=== PATIENT | male | born 1955 ===

== ENCOUNTER 2016-12-18 09:05 | Inpatient (IN) | payer OTHER ==
[2016-12-18 09:09] VITALS: BMI 29.3
[2016-12-18] MEDS ORDERED: Sodium Chloride 0.9% 1,000 ML IV ONE (09:40)
[2016-12-18] MEDS ORDERED: Iohexol 240 (50 ml) PO STA (09:40)
[2016-12-18] MEDS ORDERED: Iohexol 240 (50 ml) ONE (10:01)
[2016-12-18] MEDS ORDERED: Sodium Chloride 0.9% 1,000 ML ONE ×2 (10:01→21:52)
[2016-12-18 10:41] LABS: BASO % 1.1 % (0.0-2.0); EOS # 0.1 K/uL (0.0-0.7); EOS % 3.4 % (0.0-4.0); HEMATOCRIT 41.4 % (35.0-51.0); LYMPH % 23.6 % (20.0-40.0); MEAN CELL VOLUME 97.5 fL (80.0-94.0); MEAN CORPUSCULAR HEMOGLOBIN 32.7 pg (27.0-31.0); MEAN CORPUSCULAR HGB CONC 33.6 g/dL (33.0-37.0); MEAN PLATELET VOLUME 10.5 fL (7.2-11.7); MONO # 0.5 K/uL (0.0-0.8); NRBC % 0.1 % (0.0-2.0); RED CELL DISTRIBUTION WIDTH 15.3 % (11.5-14.5); WHITE BLOOD COUNT 4.3 K/uL (4.8-10.8)
[2016-12-18 10:56] LABS: CHLORIDE 105 mmol/L (98-107)
[2016-12-18 10:57] LABS: POTASSIUM 3.7 mmol/L (3.6-5.2); SODIUM 138 mmol/L (132-148)
[2016-12-18 10:59] LABS: ALB/GLOB RATIO 0.9 (1.0-2.1); AST/SGOT 188 U/L (17-59); BILIRUBIN,TOTAL 1.5 mg/dL (0.2-1.3); CARBON DIOXIDE 24 mmol/L (22-30); GFR AFRICAN-AMERICAN > 60; TOTAL PROTEIN 6.3 g/dL (6.3-8.3)
[2016-12-18 11:00] LABS: ALKALINE PHOSPHATASE 130 U/L (38-126); ALT/SGPT 116 U/L (21-72); BLOOD UREA NITROGEN 11 mg/dL (9-20); CALCIUM 7.9 mg/dl (8.6-10.4); GLUCOSE,RANDOM 97 mg/dL (75-110)
[2016-12-18 11:42] LABS: RBC URINE < 1 /hpf (0-3); URINE BILIRUBIN NEGATIVE (NEGATIVE); URINE BLOOD NEGATIVE (NEGATIVE); URINE COLOR Yellow (YELLOW); URINE GLUCOSE (UA) NORMAL (Normal); URINE KETONE NEGATIVE (NEGATIVE); URINE LEUKOCYTE ESTERASE TRACE Leu/uL (Negative); URINE PROTEIN NEGATIVE (NEGATIVE); URINE UROBILINOGEN NORMAL mg/dL (0.2-1.0); WBC URINE < 1 /hpf (0-5)
[2016-12-18] MEDS ORDERED: Iodixanol 320 MG/ML 100 ML BOTTLE IV ONE (12:35)
--- NOTE | 2016-12-18 14:00 | CT ---
PROCEDURE: CT Abdomen and Pelvis with contrast HISTORY: abd pain COMPARISON: None. TECHNIQUE: Contrast dose: Visipaque 320, 100 cc Radiation dose: Total exam DLP = 569 mGy-cm. This CT exam was performed using one or more of the following dose reduction techniques: Automated exposure control, adjustment of the mA and/or kV according to patient size, and/or use of iterative reconstruction technique. FINDINGS: LOWER THORAX: Unremarkable. LIVER: There is a borderline enlarged liver without focal mass appreciable. However, the surface of the liver is nodular indicative of cirrhosis. Mild ascites is seen in the abdomen and pelvis in a pattern suspicious for probable hepatofugal blood flow although no definite varices is appreciated in the abdomen at this time. Clinically correlate further. Liver is also diffusely fatty infiltrated. No significant biliary tree dilatation is appreciated. GALLBLADDER AND BILE DUCTS: Imaging the gallbladder reflects distension without radiodense cholelithiasis. No prominent mural thickening is appreciable. PANCREAS: Unremarkable. No gross lesion or ductal dilatation. SPLEEN: Unremarkable. ADRENALS: Unremarkable. No mass. KIDNEYS AND URETERS: Unremarkable. No hydronephrosis. No solid mass. VASCULATURE: Unremarkable. No aortic aneurysm. BOWEL: Retained fecal material limits evaluation of the large bowel with thickening of the distal traverse colon wall questioned. Segmental colitis is not excluded here. Limited sigmoid diverticulosis is appreciated. No definite mural thickening however evaluation is limited due to local ascites. No obstruction. No gross mural thickening. APPENDIX: Appendix is gas filled and therefore likely within normal limits. Its wall is poorly evaluated due to surrounding ascites. The correlate nevertheless prior PERITONEUM: Unremarkable. No free fluid. No free air. LYMPH NODES: Unremarkable. No enlarged lymph nodes. BLADDER: Mildly distended urinary bladder is appreciated. REPRODUCTIVE: Enlarged prostate gland. BONES: No acute fracture. OTHER FINDINGS: None. IMPRESSION: There is borderline hepatomegaly with diffuse fatty infiltration and a cirrhotic liver pattern. Mild abdominal and pelvic ascites may indicate hepatofugal portal venous blood flow. No definite varices development is appreciate this time. Clinically correlate further. Questionable thickening of the mid to distal transverse colon as well as sigmoid diverticulosis. Oral contrast is not reached the segments large bowel at the time of imaging and obscuring by retained fecal material as well as ascites limits evaluation. Segmental colitis is not excluded, particularly at the mid to distal transverse colon more so than the sigmoid segment. The appendix is limited evaluation. Further clinical correlation is advised. Next item Enlarged prostate gland.
--- NOTE | 2016-12-18 14:51 | C.PDOC ---
History Of Present Illness 61 y/o male with pmh of hep c and alcohol abuse presents to ED with complaints of abdominal pain and diarrhea for one month. Patient states he was seen by PMD last week and given antibiotics (cipro /flagyl ) with no relief. Patient denies fever, chills, nausea, vomiting, back pain, blood in stool or any other complaints at this time. Time Seen by Provider: 12/18/16 09:17 Chief Complaint (Nursing): GI Problem History Per: Patient History/Exam Limitations: no limitations Onset/Duration Of Symptoms: Days Current Symptoms Are (Timing): Still Present Location Of Pain/Discomfort: Diffuse Past Medical History Reviewed: Historical Data, Nursing Documentation, Vital Signs Vital Signs: Last Vital Signs Temp 98.4 F 12/21/16 04:00 Pulse 72 12/21/16 04:00 Resp 16 12/21/16 04:00 BP 130/77 12/21/16 04:00 Pulse Ox 100 12/21/16 04:00 - Medical History PMH: Asthma, Gastritis Surgical History: Endoscopy Family History: States: No Known Family Hx - Social History Hx Alcohol Use: No Hx Substance Use: No - Immunization History Hx Tetanus Toxoid Vaccination: No Hx Influenza Vaccination: No Hx Pneumococcal Vaccination: No Review Of Systems Except As Marked, All Systems Reviewed And Found Negative. Constitutional: Negative for: Fever, Chills Gastrointestinal: Positive for: Abdominal Pain, Diarrhea. Negative for: Nausea , Vomiting, Hematochezia Genitourinary: Negative for: Dysuria, Frequency Musculoskeletal: Negative for: Back Pain Skin: Negative for: Rash Physical Exam - Physical Exam Appears: Non-toxic, No Acute Distress Skin: Normal Color, Warm, Dry, No Rash Head: Atraumatic, Normacephalic Eye(s): bilateral: Normal Inspection Oral Mucosa: Moist Neck: Normal ROM, Supple Chest: Symmetrical Cardiovascular: Rhythm Regular, No Murmur Respiratory: Normal Breath Sounds, No Rales, No Rhonchi, Wheezing Gastrointestinal/Abdominal: Soft, No Tenderness, No Guarding, No Rebound Back: No CVA Tenderness, No Paraspinal Tenderness Extremity: Normal ROM, Capillary Refill (<2 seconds) Neurological/Psych: Oriented x3 ED Course And Treatment - Laboratory Results Result Diagrams: 12/21/16 06:16 12/21/16 06:16 O2 Sat by Pulse Oximetry: 99 (RA) Pulse Ox Interpretation: Normal Progress Note: Case discussed with Dr. Winston who states that patient has had these symptoms for over a month, and that patient has his second outpatient treatment. Pt has history of hepatitis C, and notes that his GI specialist is Dr. Conde. Case discussed with Dr. Conde who suggests patient to be admitted and he will further evaluate. Case also discussed with Dr. Bedoya who agrees with plan and admission. Disposition - Disposition Disposition: HOSPITALIZED Disposition Time: 18:20 Condition: STABLE - Clinical Impression Clinical Impression: Abdominal pain, Diarrhea - PA / PRODUCTION EXPERT / Resident Statement MD/DO has reviewed & agrees with the documentation as recorded. - Scribe Statement The provider has reviewed the documentation as recorded by the Ebonie Steve All medical record entries made by the Ebonie were at my direction and personally dictated by me. I have reviewed the chart and agree that the record accurately reflects my personal performance of the history, physical exam, medical decision making, and the department course for this patient. I have also personally directed, reviewed, and agree with the discharge instructions and disposition.
--- NOTE | 2016-12-18 20:43 | CP.PCM.HP ---
<Juan Alberto Ocampo - Last Filed: 12/18/16 20:36> History of Present Illness - History of Present Illness History of Present Illness: PMD: Dr. Epps Code status: Full code PGY1 Note for Dr. Bedoya HPI: Patient is a 61 year old Albanian speaking male presenting the ED with constant diarrhea. The diarrhea began 1 month ago. He went to his PMD(Dr. Anglin) two weeks ago who started him on Flagel 500mg BID and Cipro 500mg BID for suspected bacterial infection. The abx have not help and the diarrhea has continued. This morning, the patient woke up feeling weak and the said that is enough we are going to the ER. He denies any blood in the stool. He states that it is watery diarrhea and has gone so many times he lost count. The episodes are made worse with every meal. Although the patient is hungry he is unable to retain foods as it immediately causes an episode of diarrhea. During each episode of diarrhea he has diffuse abdominal pain, but it stops after defecation. ROS * General: Reports weight loss of the last month, and weakness. Denies fever, chills, diaphoresis, and changes in appetite, recent travel, recent illness, recent sick contacts. * HEENT: Denies changes in vision. * Cardio: Denies CP, Palp. * Resp: Denies SOB * GI: Reports diarrhea, abdominal pain. Denies hematochezia * : Denies dysuria, freq. * MSK: Denies muscle pain. * Heme: Denies easy bruising * Neuro: Reports weakness. Denies dizziness. 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 Medications * Diphenoxylate 1tb q4h * Cipro 500mg BID * Metro 500mg q8h * Meclizine 25mg as needed Allergies: Penicillin, swells up Present on Admission - Present on Admission Any Indicators Present on Admission: No History of DVT/PE: No History of Uncontrolled Diabetes: No Urinary Catheter: No Decubitus Ulcer Present: No History Surgical Site Infection Following: None Review of Systems - Constitutional Constitutional: As Per HPI - EENT Eyes: As Per HPI Ears: As Per HPI Nose/Mouth/Throat: As Per HPI - Cardiovascular Cardiovascular: As Per HPI - Respiratory Respiratory: As Per HPI - Gastrointestinal Gastrointestinal: As Per HPI - Genitourinary Genitourinary: As Per HPI - Reproductive: Male Reproductive:Male: As Per HPI - Musculoskeletal Musculoskeletal: As Per HPI - Integumentary Integumentary: As Per HPI - Neurological Neurological: As Per HPI - Psychiatric Psychiatric: As Per HPI - Endocrine Endocrine: As Per HPI - Hematologic/Lymphatic Hematologic: As Per HPI Past Patient History - Past Medical History & Family History Past Medical History?: Yes - Past Social History Smoking Status: Never Smoked - CARDIAC Hx Cardiac Disorders: No - PULMONARY Hx Asthma: Yes - NEUROLOGICAL Hx Neurological Disorder: Yes Hx Dizziness: Yes - HEENT Hx HEENT Problems: Yes Hx Cataracts: Yes Hx Glaucoma: Yes - RENAL Hx Chronic Kidney Disease: No - ENDOCRINE/METABOLIC Hx Endocrine Disorders: No - HEMATOLOGICAL/ONCOLOGICAL Hx Blood Disorders: Yes Hx Hepatitis C: Yes - INTEGUMENTARY Hx Dermatological Problems: No - MUSCULOSKELETAL/RHEUMATOLOGICAL Hx Musculoskeletal Disorders: No - GASTROINTESTINAL Hx Gastritis: Yes - GENITOURINARY/GYNECOLOGICAL Hx Genitourinary Disorders: No - PSYCHIATRIC Hx Substance Use: No - SURGICAL HISTORY Hx Surgeries: Yes Hx Cataract Extraction: Yes Hx Eye Surgery: Yes (GLAUCOMA SX) - ANESTHESIA Hx Anesthesia: Yes Hx Anesthesia Reactions: No Hx Malignant Hyperthermia: No Meds Allergies/Adverse Reactions: Allergies Allergy/AdvReac Type Severity Reaction Status Date / Time Penicillins Allergy RASH Verified 12/18/16 09:29 Physical Exam - Constitutional Appears: Well, Non-toxic, No Acute Distress - Head Exam Head Exam: ATRAUMATIC, NORMAL INSPECTION, NORMOCEPHALIC - Eye Exam Eye Exam: EOMI Pupil Exam: NORMAL ACCOMODATION - ENT Exam ENT Exam: Mucous Membranes Moist - Neck Exam Neck exam: Positive for: Normal Inspection - Respiratory Exam Respiratory Exam: Clear to Auscultation Bilateral, NORMAL BREATHING PATTERN - Cardiovascular Exam Cardiovascular Exam: REGULAR RHYTHM - GI/Abdominal Exam GI & Abdominal Exam: Normal Bowel Sounds, Soft. absent: Distended, Tenderness - Back Exam Back exam: absent: CVA tenderness (L), CVA tenderness (R) - Neurological Exam Neurological exam: Alert, Oriented x3 - Psychiatric Exam Psychiatric exam: Normal Affect, Normal Mood - Skin Skin Exam: Dry, Intact, Normal Color, Warm Results - Vital Signs Recent Vital Signs: Last Vital Signs Temp 97.8 F 12/18/16 17:26 Pulse 67 12/18/16 19:15 Resp 18 12/18/16 19:15 BP 124/59 L 12/18/16 19:15 Pulse Ox 96 12/18/16 19:15 - Labs Result Diagrams: 12/18/16 10:36 12/18/16 10:36 Labs: Laboratory Results - last 24 hr 12/18/16 12/18/16 17:19 17:19 Stool Leukocytes, Qual Negative C. difficile Ag & Toxin Negative Assessment & Plan - Assessment and Plan (Free Text) Assessment: Diverticulitis * GI ([facility]) * Recovering * CT does not show any overt signs of inflammation (stranding or wall thickening ), numerous tics through majority of colon * Cipro IV 400mg Q12 * Flagyl IV 500mg Q8 * Full Liquid Diet Diarrhea * Stool C. diff negative * Stool WBC negative * Stool Occult blood * Stool O/P * H. pylori Ag * NS @ 175 Hx of Vertigo * Meclezine 25mg PRN PPX * Pepcid 20mg QD * SCDs * Ambulate - Date & Time Date: 12/18/16 Time: 20:53 Decision To Admit - Pt Status Changed To: Hospital Disposition Of: Observation - . Bed Request Type: Regular <Bedoya,Peter H - Last Filed: 12/19/16 09:34> Results - Vital Signs Recent Vital Signs: Last Vital Signs Temp 97.6 F 12/19/16 08:20 Pulse 68 12/19/16 07:33 Resp 18 12/19/16 07:33 BP 138/84 12/19/16 07:33 Pulse Ox 99 12/19/16 07:33 - Labs Result Diagrams: 12/19/16 06:26 12/19/16 06:26 Labs: Laboratory Results - last 24 hr 12/18/16 12/18/16 12/18/16 10:36 10:36 11:17 WBC 4.3 L RBC 4.25 L Hgb 13.9 Hct 41.4 MCV 97.5 H MCH 32.7 H MCHC 33.6 RDW 15.3 H Plt Count 104 L MPV 10.5 Neut % (Auto) 59.9 Lymph % (Auto) 23.6 Fa[place]ner % (Auto) 12.0 H Eos % (Auto) 3.4 Baso % (Auto) 1.1 Neut # 2.6 Lymph # 1.0 Fa[place]ner # 0.5 Eos # 0.1 Baso # 0.0 Differential Comment Sodium 138 Potassium 3.7 Chloride 105 Carbon Dioxide 24 Anion Gap 12 BUN 11 Creatinine 0.6 L Est GFR ( Amer) > 60 Est GFR (Non-Af Amer) > 60 Random Glucose 97 Calcium 7.9 L Total Bilirubin 1.5 H AST 188 H ALT 116 H Alkaline Phosphatase 130 H Total Protein 6.3 Albumin 3.0 L Globulin 3.3 Albumin/Globulin Ratio 0.9 L Lipase 126 Urine Color Yellow Urine Clarity Clear Urine pH 5.0 Ur Specific [place] 1.014 Urine Protein Negative Urine Glucose (UA) Normal Urine Ketones Negative Urine Blood Negative Urine Nitrate Negative Urine Bilirubin Negative Urine Urobilinogen Normal Ur Leukocyte Esterase Trace Urine WBC (Auto) < 1 Urine RBC (Auto) < 1 Stool Leukocytes, Qual C. difficile Ag & Toxin 12/18/16 12/18/16 12/19/16 17:19 17:19 06:26 WBC 4.7 L RBC 3.93 L Hgb 13.1 Hct 37.8 MCV 96.3 H MCH 33.3 H MCHC 34.6 RDW 15.1 H Plt Count 91 L MPV 9.7 Neut % (Auto) 47.0 L Lymph % (Auto) 31.9 [place]ner % (Auto) 10.5 H Eos % (Auto) 9.6 H Baso % (Auto) 1.0 Neut # 2.2 Lymph # 1.5 Fa[place]ner # 0.5 Eos # 0.5 Baso # 0.0 Differential Comment Sodium Potassium Chloride Carbon Dioxide Anion Gap BUN Creatinine Est GFR ( Amer) Est GFR (Non-Af Amer) Random Glucose Calcium Total Bilirubin AST ALT Alkaline Phosphatase Total Protein Albumin Globulin Albumin/Globulin Ratio Lipase Urine Color Urine Clarity Urine pH Ur Specific [place] Urine Protein Urine Glucose (UA) Urine Ketones Urine Blood Urine Nitrate Urine Bilirubin Urine Urobilinogen Ur Leukocyte Esterase Urine WBC (Auto) Urine RBC (Auto) Stool Leukocytes, Qual Negative C. difficile Ag & Toxin Negative 12/19/16 06:26 WBC RBC Hgb Hct MCV MCH MCHC RDW Plt Count MPV Neut % (Auto) Lymph % (Auto) Fa[place]ner % (Auto) Eos % (Auto) Baso % (Auto) Neut # Lymph # [place]ner # Eos # Baso # Differential Comment Sodium 135 Potassium 4.0 Chloride 104 Carbon Dioxide 25 Anion Gap 10 BUN 11 Creatinine 0.6 L Est GFR ( Amer) > 60 Est GFR (Non-Af Amer) > 60 Random Glucose 78 Calcium 8.0 L Total Bilirubin AST ALT Alkaline Phosphatase Total Protein Albumin Globulin Albumin/Globulin Ratio Lipase Urine Color Urine Clarity Urine pH Ur Specific [place] Urine Protein Urine Glucose (UA) Urine Ketones Urine Blood Urine Nitrate Urine Bilirubin Urine Urobilinogen Ur Leukocyte Esterase Urine WBC (Auto) Urine RBC (Auto) Stool Leukocytes, Qual C. difficile Ag & Toxin Attending/Attestation - Attestation I have personally seen and examined this patient.: Yes I have fully participated in the care of the patient.: Yes I have reviewed all pertinent clinical information: Yes Notes (Text): 12/19/16 09:31 Medical attending: Patient was seen and examined by me, agrees the above note by medical office worker. The patient was with family member at bedside when we saw him. He is not under any acute distress when we saw him. He appeared rather comfortable. Reviewed his lab work shows that he does not have a white blood cell count, and his hemoglobin is stable. We had discussion with regards to the patient's ongoing diarrhea that has been going on for some time. He's also been getting some outpatient antibiotics as well. In the emergency room he had a CT scan of the abdomen and pelvis which did not show any overt findings for diverticulitis per say but there are several things that it explained that it had difficulty ruling out At this time were to check stool studies, the patient will need to have intravenous fluids will continue IV antibiotics at this time. The patient also had a stool for C. difficile that was negative Thank you very much, Hardeep Bedoya
[2016-12-18] MEDS ORDERED: Ciprofloxacin 400mg/200ml D5W 400 MG/200 ML BAG IVPB ONE (21:52)
[2016-12-18] MEDS: Ciprofloxacin 400mg/200ml D5W 400 MG/200 ML BAG IVPB SCH (22:00)
[2016-12-18] MEDS: Sodium Chloride 0.9% 1,000 ML IV SCH (22:52)
[2016-12-18] MEDS: metroNIDAZOLE IV 500 mg/100 ml 500 MG/100 ML BAG IVPB SCH (23:45)
[2016-12-18] MEDS ORDERED: metroNIDAZOLE IV 500 mg/100 ml 500 MG/100 ML BAG ONE (23:46)
[2016-12-19] MEDS: Sodium Chloride 0.9% 1,000 ML IV SCH ×4 (03:00→16:15)
[2016-12-19] MEDS ORDERED: metroNIDAZOLE IV 500 mg/100 ml 500 MG/100 ML BAG ONE (06:29)
[2016-12-19] MEDS: metroNIDAZOLE IV 500 mg/100 ml 500 MG/100 ML BAG IVPB SCH ×3 (06:30→22:00)
[2016-12-19 06:32] LABS: EOS # 0.5 K/uL (0.0-0.7); EOS % 9.6 % (0.0-4.0); HEMATOCRIT 37.8 % (35.0-51.0); LYMPH # 1.5 K/uL (1.0-4.3); LYMPH % 31.9 % (20.0-40.0); MEAN CELL VOLUME 96.3 fL (80.0-94.0); MEAN CORPUSCULAR HEMOGLOBIN 33.3 pg (27.0-31.0); MEAN CORPUSCULAR HGB CONC 34.6 g/dL (33.0-37.0); MEAN PLATELET VOLUME 9.7 fL (7.2-11.7); MONO # 0.5 K/uL (0.0-0.8); MONO % 10.5 % (0.0-10.0); NRBC % 0.1 % (0.0-2.0); RED CELL DISTRIBUTION WIDTH 15.1 % (11.5-14.5); WHITE BLOOD COUNT 4.7 K/uL (4.8-10.8)
[2016-12-19 06:52] LABS: CHLORIDE 104 mmol/L (98-107); SODIUM 135 mmol/L (132-148)
[2016-12-19 06:55] LABS: BLOOD UREA NITROGEN 11 mg/dL (9-20); CARBON DIOXIDE 25 mmol/L (22-30); GFR AFRICAN-AMERICAN > 60
[2016-12-19 06:56] LABS: GLUCOSE,RANDOM 78 mg/dL (75-110)
--- NOTE | 2016-12-19 07:20 | CP.PCM.PN ---
<Juan Alberto Ocampo - Last Filed: 12/19/16 19:39> Subjective - Date & Time of Evaluation Date of Evaluation: 12/19/16 Time of Evaluation: 07:19 - Subjective Subjective: PGY1 Note for Dr. Bedoya HPI: Patient seen and examined at bedside. Stating he is having less diarrhea. No abdominal pain. Tolerating diet. No other complaoints at this time. Denying chest pain, SOB, F, N/V. Objective - Vital Signs/Intake and Output Vital Signs (last 24 hours): Temp Pulse Resp BP Pulse Ox 97.9 F 65 17 134/75 98 12/19/16 06:33 12/19/16 06:33 12/19/16 06:33 12/19/16 06:33 12/19/16 06:33 - Medications Medications: Current Medications Acetaminophen (Tylenol 325mg Tab) 650 mg PO Q6 PRN PRN Reason: Fever >100.4 F Famotidine (Pepcid) 20 mg PO DAILY [facility] Ciprofloxacin (Cipro 400mg/200ml Dsw) 400 mg in 200 mls @ 133 mls/hr IVPB Q12H [facility] Last Admin: 12/18/16 22:00 Dose: 133 mls/hr Metronidazole (Flagyl) 500 mg in 100 mls @ 100 mls/hr IVPB Q8 [facility] Last Admin: 12/19/16 06:30 Dose: 100 mls/hr Sodium Chloride (Sodium Chloride 0.9%) 1,000 mls @ 175 mls/hr IV .[id number] [facility] Last Admin: 12/19/16 03:00 Dose: 175 mls/hr Meclizine HCl (Antivert) 25 mg PO BID PRN PRN Reason: Dizziness Ondansetron HCl (Zofran Inj) 4 mg IVP Q6 PRN PRN Reason: Nausea/Vomiting - Labs Labs: 12/19/16 06:26 12/19/16 06:26 - Constitutional Appears: Well, Non-toxic, No Acute Distress - Head Exam Head Exam: ATRAUMATIC, NORMAL INSPECTION, NORMOCEPHALIC - Eye Exam Eye Exam: EOMI Pupil Exam: NORMAL ACCOMODATION - ENT Exam ENT Exam: Mucous Membranes Moist - Respiratory Exam Respiratory Exam: Clear to Ausculation Bilateral, NORMAL BREATHING PATTERN - Cardiovascular Exam Cardiovascular Exam: REGULAR RHYTHM - GI/Abdominal Exam GI & Abdominal Exam: Soft, Hyperactive Bowel Sounds. absent: Distended, Tenderness - Extremities Exam Extremities Exam: absent: Joint Swelling, Tenderness - Back Exam Back Exam: absent: CVA tenderness (L), CVA tenderness (R) - Neurological Exam Neurological Exam: Alert, Awake, Oriented x3 - Psychiatric Exam Psychiatric exam: Normal Affect, Normal Mood - Skin Skin Exam: Dry, Intact, Normal Color, Warm Assessment and Plan - Assessment and Plan (Free Text) Assessment: Diverticulitis * GI ([facility]ton) * Aztreonam due to failed cipro outpatient and PCN allergy * EGD screening for varices * Continue IVF * autoimmune hepatits - Normal IgG * hepatitis panel = HCV +, HBV negative * AFP - F/U * Iron profile = Iron 195, TIBC 252, % Sat 77 * Thrombocytopenia likely secondary to Liver Dz * Recovering * CT does not show any overt signs of inflammation (stranding or wall thickening ), numerous tics through majority of colon * Aztreonam 2g IV Q8 * Flagyl IV 500mg Q8 * Full Liquid Diet Diarrhea * Stool C. diff negative * Stool WBC negative * Stool Occult blood * negative * Stool O/P * H. pylori Ag * NS @ 75 Hx of Vertigo * Meclezine 25mg PRN PPX * Pepcid 20mg QD * SCDs * Ambulate <Hardeep Bedoya H - Last Filed: 12/20/16 07:41> Objective - Vital Signs/Intake and Output Vital Signs (last 24 hours): Temp Pulse Resp BP Pulse Ox 98.1 F 72 16 132/78 100 12/20/16 04:00 12/20/16 04:00 12/20/16 04:00 12/20/16 04:00 12/20/16 04:00 Intake and Output: 12/20/16 12/20/16 06:59 18:59 Intake Total 400 Balance 400 - Medications Medications: Current Medications Acetaminophen (Tylenol 325mg Tab) 650 mg PO Q6 PRN PRN Reason: Fever >100.4 F Famotidine (Pepcid) 20 mg PO DAILY [facility] Last Admin: 12/19/16 10:38 Dose: 20 mg Metronidazole (Flagyl) 500 mg in 100 mls @ 100 mls/hr IVPB Q8 [facility] Last Admin: 12/20/16 05:06 Dose: 100 mls/hr Aztreonam 2 gm/ Sodium (Chloride) 100 mls @ 100 mls/hr IVPB Q8H [facility] Last Admin: 12/20/16 04:00 Dose: 100 mls/hr Sodium Chloride (Sodium Chloride 0.9%) 1,000 mls @ 75 mls/hr IV .[id number] [facility] Last Admin: 12/20/16 05:02 Dose: 75 mls/hr Meclizine HCl (Antivert) 25 mg PO BID PRN PRN Reason: Dizziness Ondansetron HCl (Zofran Inj) 4 mg IVP Q6 PRN PRN Reason: Nausea/Vomiting - Labs Labs: 12/20/16 06:12 12/20/16 06:12 PT 17.5 SECONDS (9.7-12.2) H 12/19/16 11:26 INR 1.5 12/19/16 11:26 Attending/Attestation - Attestation I have personally seen and examined this patient.: Yes I have fully participated in the care of the patient.: Yes I have reviewed all pertinent clinical information, including history, physical exam and plan: Yes Notes (Text): 12/20/16 07:38 Medical Attending: Patient was seen and examined by me. Agree with the above note by the resident. The patient was seen with family members present at bedside. He reported that his pain was much improved since before. Somewhat less diarrhea as well. The patient denied fevers and chills as well. The patient may potentially have endoscopy Abx were changed to be Aztreonam and Flagyl. thank you Hardeep Bedoya
[2016-12-19] MEDS: Ciprofloxacin 400mg/200ml D5W 400 MG/200 ML BAG IVPB SCH (10:31)
--- NOTE | 2016-12-19 11:35 | CP.PCM.CON ---
<Celine Mcintosh - Last Filed: 12/19/16 11:54> History of Present Illness - History of Present Illness History of Present Illness: GI Fellow PGY4 Consult Note This is a 61yM with a pmhx of HepC, heavy alcohol use 30yrs ago, vertigo presenting to the ED with complaints of watery diarrhea for one month. The pt went to his PMD(Dr. Anglin) two weeks ago and was started on Flagyl and Cipro for suspected bacterial infection. Pt reports he completed a 10day course on Sunday which helped decreased the diarrhea from 15 times a day to 7-8 times a day. Pt denies abdominal pain, nausea, vomiting, fevers, chills, melena, or hematochezia. The episodes are made worse with every meal. Prior to this episode , pt reports having regular BM daily with no history of constipation or diarrhea. Pt report she was diagnosed with Hepc 3oyrs ago and never was treated also has a hx of heavy drinking which he stopped 30yrs ago. Pt did have a colonoscopy 05/[address] 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 ROS: A 12pt ROS was obtained and was negative except as above PmHx: As stated in HPI SHx: denies tobacco, alcohol or illicit drug use FHx: Denies colon cancer PsHx: Denies Past Patient History - Past Medical History & Family History Past Medical History?: Yes - Past Social History Smoking Status: Former Smoker - CARDIAC Hx Cardiac Disorders: No - PULMONARY Hx Asthma: Yes - NEUROLOGICAL Hx Neurological Disorder: Yes Hx Dizziness: Yes - HEENT Hx HEENT Problems: Yes Hx Cataracts: Yes Hx Glaucoma: Yes - RENAL Hx Chronic Kidney Disease: No - ENDOCRINE/METABOLIC Hx Endocrine Disorders: No - HEMATOLOGICAL/ONCOLOGICAL Hx Blood Disorders: Yes Hx Hepatitis C: Yes - INTEGUMENTARY Hx Dermatological Problems: No - MUSCULOSKELETAL/RHEUMATOLOGICAL Hx Falls: No - GASTROINTESTINAL Hx Gastritis: Yes - GENITOURINARY/GYNECOLOGICAL Hx Genitourinary Disorders: No - PSYCHIATRIC Hx Substance Use: No - SURGICAL HISTORY Hx Surgeries: Yes Hx Cataract Extraction: Yes Hx Eye Surgery: Yes (GLAUCOMA SX) - ANESTHESIA Hx Anesthesia: Yes Hx Anesthesia Reactions: No Hx Malignant Hyperthermia: No Meds Allergies/Adverse Reactions: Allergies Allergy/AdvReac Type Severity Reaction Status Date / Time Penicillins Allergy RASH Verified 12/18/16 09:29 - Medications Medications: Current Medications Acetaminophen (Tylenol 325mg Tab) 650 mg PO Q6 PRN PRN Reason: Fever >100.4 F Famotidine (Pepcid) 20 mg PO DAILY [facility] Last Admin: 12/19/16 10:38 Dose: 20 mg Metronidazole (Flagyl) 500 mg in 100 mls @ 100 mls/hr IVPB Q8 [facility] Last Admin: 12/19/16 06:30 Dose: 100 mls/hr Sodium Chloride (Sodium Chloride 0.9%) 1,000 mls @ 175 mls/hr IV .[id number] [facility] Last Admin: 12/19/16 08:45 Dose: 175 mls/hr Aztreonam 2 gm/ Sodium (Chloride) 100 mls @ 200 mls/hr IVPB Q8H [facility] Meclizine HCl (Antivert) 25 mg PO BID PRN PRN Reason: Dizziness Ondansetron HCl (Zofran Inj) 4 mg IVP Q6 PRN PRN Reason: Nausea/Vomiting Physical Exam - Constitutional Appears: Non-toxic, No Acute Distress - Head Exam Head Exam: ATRAUMATIC, NORMAL INSPECTION, NORMOCEPHALIC - Eye Exam Eye Exam: EOMI, Normal appearance, PERRL - ENT Exam ENT Exam: Mucous Membranes Moist - Neck Exam Neck exam: Positive for: Normal Inspection - Respiratory Exam Respiratory Exam: Clear to Auscultation Bilateral, NORMAL BREATHING PATTERN - Cardiovascular Exam Cardiovascular Exam: RRR, +S1, +S2 - GI/Abdominal Exam GI & Abdominal Exam: Hyperactive Bowel Sounds, Soft. absent: Distended, Firm, Guarding, Rigid, Tenderness - Extremities Exam Extremities exam: Positive for: full ROM, normal inspection - Back Exam Back exam: NORMAL INSPECTION - Neurological Exam Neurological exam: Alert, Oriented x3 - Psychiatric Exam Psychiatric exam: Normal Affect, Normal Mood - Skin Skin Exam: Dry, Intact, Normal Color, Warm Results - Vital Signs Recent Vital Signs: Last Vital Signs Temp 97.6 F 12/19/16 08:20 Pulse 68 12/19/16 07:33 Resp 18 12/19/16 07:33 BP 138/84 12/19/16 07:33 Pulse Ox 99 12/19/16 07:33 - Labs Result Diagrams: 12/19/16 06:26 12/19/16 06:26 Labs: Laboratory Results - last 24 hr 12/18/16 12/18/16 12/18/16 11:17 17:19 17:19 WBC RBC Hgb Hct MCV MCH MCHC RDW Plt Count MPV Neut % (Auto) Lymph % (Auto) [place] % (Auto) Eos % (Auto) Baso % (Auto) Neut # Lymph # [place] # Eos # Baso # Sodium Potassium Chloride Carbon Dioxide Anion Gap BUN Creatinine Est GFR ( Amer) Est GFR (Non-Af Amer) Random Glucose Calcium Urine Color Yellow Urine Clarity Clear Urine pH 5.0 Ur Specific [place] 1.014 Urine Protein Negative Urine Glucose (UA) Normal Urine Ketones Negative Urine Blood Negative Urine Nitrate Negative Urine Bilirubin Negative Urine Urobilinogen Normal Ur Leukocyte Esterase Trace Urine WBC (Auto) < 1 Urine RBC (Auto) < 1 Stool Leukocytes, Qual Negative C. difficile Ag & Toxin Negative 12/19/16 12/19/16 06:26 06:26 WBC 4.7 L RBC 3.93 L Hgb 13.1 Hct 37.8 MCV 96.3 H MCH 33.3 H MCHC 34.6 RDW 15.1 H Plt Count 91 L MPV 9.7 Neut % (Auto) 47.0 L Lymph % (Auto) 31.9 [place] % (Auto) 10.5 H Eos % (Auto) 9.6 H Baso % (Auto) 1.0 Neut # 2.2 Lymph # 1.5 [place] # 0.5 Eos # 0.5 Baso # 0.0 Sodium 135 Potassium 4.0 Chloride 104 Carbon Dioxide 25 Anion Gap 10 BUN 11 Creatinine 0.6 L Est GFR ( Amer) > 60 Est GFR (Non-Af Amer) > 60 Random Glucose 78 Calcium 8.0 L Urine Color Urine Clarity Urine pH Ur Specific [place] Urine Protein Urine Glucose (UA) Urine Ketones Urine Blood Urine Nitrate Urine Bilirubin Urine Urobilinogen Ur Leukocyte Esterase Urine WBC (Auto) Urine RBC (Auto) Stool Leukocytes, Qual C. difficile Ag & Toxin Assessment & Plan - Assessment and Plan (Free Text) Assessment: This is a 61yM presenting with watery diarrhea for one month. 1. Diarrhea 2. Cirrhosis 3. Transaminitis 4. Thrombocytopenia 5. Hx Hep C Plan: -Continue supportive care with IVF hydration and clear liquid diet -Order infectious workup with stool studies, pt's c.diff was negative -Discontinue IV Cipro as pt failed outpt treatment and high fluoroquinolone resistance, will start IV Aztreonam since pt has penicillin allergy, continue Metronidazole -Further workup of pt's cirrhosis -autoimmune, hepatitis panel, AFP, iron profile -Pt may benefit from screening variceal EGD -Thrombocytopenia likely due to liver disease -Will continue to follow pt closely and make further recommendations <Lonnie Conde - Last Filed: 12/19/16 14:57> Meds - Medications Medications: Current Medications Acetaminophen (Tylenol 325mg Tab) 650 mg PO Q6 PRN PRN Reason: Fever >100.4 F Famotidine (Pepcid) 20 mg PO DAILY [facility] Last Admin: 12/19/16 10:38 Dose: 20 mg Metronidazole (Flagyl) 500 mg in 100 mls @ 100 mls/hr IVPB Q8 [facility] Last Admin: 12/19/16 06:30 Dose: 100 mls/hr Sodium Chloride (Sodium Chloride 0.9%) 1,000 mls @ 175 mls/hr IV .[id number] [facility] Last Admin: 12/19/16 14:14 Dose: Not Given Aztreonam 2 gm/ Sodium (Chloride) 100 mls @ 100 mls/hr IVPB Q8H [facility] Last Admin: 12/19/16 13:26 Dose: 100 mls/hr Meclizine HCl (Antivert) 25 mg PO BID PRN PRN Reason: Dizziness Ondansetron HCl (Zofran Inj) 4 mg IVP Q6 PRN PRN Reason: Nausea/Vomiting Results - Vital Signs Recent Vital Signs: Last Vital Signs Temp 97.5 F L 12/19/16 12:01 Pulse 68 12/19/16 07:33 Resp 18 12/19/16 07:33 BP 138/84 12/19/16 07:33 Pulse Ox 99 12/19/16 07:33 - Labs Result Diagrams: 12/19/16 06:26 12/19/16 06:26 Labs: Laboratory Results - last 24 hr 12/18/16 12/18/16 12/19/16 17:19 17:19 06:26 WBC 4.7 L RBC 3.93 L Hgb 13.1 Hct 37.8 MCV 96.3 H MCH 33.3 H MCHC 34.6 RDW 15.1 H Plt Count 91 L MPV 9.7 Neut % (Auto) 47.0 L Lymph % (Auto) 31.9 [place] % (Auto) 10.5 H Eos % (Auto) 9.6 H Baso % (Auto) 1.0 Neut # 2.2 Lymph # 1.5 [place] # 0.5 Eos # 0.5 Baso # 0.0 PT INR Sodium Potassium Chloride Carbon Dioxide Anion Gap BUN Creatinine Est GFR ( Amer) Est GFR (Non-Af Amer) Random Glucose Calcium Total Bilirubin Direct Bilirubin AST ALT Alkaline Phosphatase Total Protein Albumin Globulin Albumin/Globulin Ratio Stool Leukocytes, Qual Negative IgG C. difficile Ag & Toxin Negative Hepatitis A IgM Ab Hep Bs Antigen Hep B Core IgM Ab Hepatitis C Antibody 12/19/16 12/19/16 12/19/16 06:26 11:26 11:26 WBC RBC Hgb Hct MCV MCH MCHC RDW Plt Count MPV Neut % (Auto) Lymph % (Auto) [place] % (Auto) Eos % (Auto) Baso % (Auto) Neut # Lymph # [place] # Eos # Baso # PT 17.5 H INR 1.5 Sodium 135 Potassium 4.0 Chloride 104 Carbon Dioxide 25 Anion Gap 10 BUN 11 Creatinine 0.6 L Est GFR ( Amer) > 60 Est GFR (Non-Af Amer) > 60 Random Glucose 78 Calcium 8.0 L Total Bilirubin 1.4 H Direct Bilirubin 0.8 H AST 173 H ALT 97 H Alkaline Phosphatase 111 Total Protein 5.5 L Albumin 2.6 L Globulin 3.0 Albumin/Globulin Ratio 0.9 L Stool Leukocytes, Qual IgG C. difficile Ag & Toxin Hepatitis A IgM Ab Hep Bs Antigen Hep B Core IgM Ab Hepatitis C Antibody 12/19/16 12/19/16 11:44 11:47 WBC RBC Hgb Hct MCV MCH MCHC RDW Plt Count MPV Neut % (Auto) Lymph % (Auto) [place] % (Auto) Eos % (Auto) Baso % (Auto) Neut # Lymph # [place] # Eos # Baso # PT INR Sodium Potassium Chloride Carbon Dioxide Anion Gap BUN Creatinine Est GFR ( Amer) Est GFR (Non-Af Amer) Random Glucose Calcium Total Bilirubin Direct Bilirubin AST ALT Alkaline Phosphatase Total Protein Albumin Globulin Albumin/Globulin Ratio Stool Leukocytes, Qual IgG 1367.2 C. difficile Ag & Toxin Hepatitis A IgM Ab Negative Hep Bs Antigen Negative Hep B Core IgM Ab Negative Hepatitis C Antibody Reactive Attending/Attestation - Attestation I have personally seen and examined this patient.: Yes I have fully participated in the care of the patient.: Yes I have reviewed all pertinent clinical information: Yes Notes (Text): 12/19/16 14:50 I have seen and examined patient with GI fellow. Agree with above documentation with the following additions. In brief, this is a 61 year old male with history of HCV, compensated cirrhosis, who presents to hospital with complaint of progressive diarrhea over the past one month. He describes having up to 7 loose watery, non bloody bowel movements per day which started suddenly. Prior to this he was having once daily normal bowel movements. He was worked up as outpatient and started on antibiotic therapy, though after 10 days his symptoms persisted and he came to hospital for further management. He denies abdominal pain, nausea, vomiting, fever/chills, weight loss, rectal bleeding, recent travel, sick contacts, or prior antibiotic use. He is treatment naive for HCV, though was undergoing potential evaluation for therapy as outpatient. He had a colonoscopy in May 2016 which showed a cecal AVM, diverticulosis, and internal hemorrhoids. Additional physical examination: Abdomen: no palpable hepato/splenomegaly HCV, compensated cirrhosis Diarrhea - unclear etiology, non-responsive to outpatient oral antibiotic therapy - Clear liquid diet as tolerated - Obtain stool studies (culture, c-difficile, O/P) - Would change antibiotic regimen in order to account for potential quinolone resistance, aztreonam and flagyl - Continue to monitor LFTs, obtain autoimmune panel - Patient had outpatient triple phase liver CT in July 2016 which showed no focal liver lesion. He would benefit from EGD for variceal screening, potentially will be scheduled on pending patient clinical progress.
[2016-12-19 11:45] LABS: INR 1.5
[2016-12-19 11:54] LABS: ALB/GLOB RATIO 0.9 (1.0-2.1); BILIRUBIN,DIRECT 0.8 mg/dL (0.0-0.4); BILIRUBIN,TOTAL 1.4 mg/dL (0.2-1.3); TOTAL PROTEIN 5.5 g/dL (6.3-8.3)
[2016-12-19] MEDS: Aztreonam 2 GM in Sodium Chloride 0.9% 100 ML IVPB SCH ×2 (13:26→20:00)
[2016-12-19 16:26] LABS: IRON 195 ug/dL (49-181)
[2016-12-20] MEDS: Aztreonam 2 GM in Sodium Chloride 0.9% 100 ML IVPB SCH ×3 (04:00→20:00)
[2016-12-20] MEDS: Sodium Chloride 0.9% 1,000 ML IV SCH ×2 (05:02→18:49)
[2016-12-20] MEDS: metroNIDAZOLE IV 500 mg/100 ml 500 MG/100 ML BAG IVPB SCH ×3 (05:06→22:00)
[2016-12-20 06:25] LABS: BASO % 1.1 % (0.0-2.0); EOS # 0.3 K/uL (0.0-0.7); EOS % 6.3 % (0.0-4.0); LYMPH # 1.4 K/uL (1.0-4.3); LYMPH % 30.2 % (20.0-40.0); MEAN CELL VOLUME 97.3 fL (80.0-94.0); MEAN CORPUSCULAR HEMOGLOBIN 33.2 pg (27.0-31.0); MEAN CORPUSCULAR HGB CONC 34.1 g/dL (33.0-37.0); MEAN PLATELET VOLUME 9.5 fL (7.2-11.7); MONO # 0.4 K/uL (0.0-0.8); MONO % 9.7 % (0.0-10.0); NRBC % 0.2 % (0.0-2.0); RED CELL DISTRIBUTION WIDTH 15.1 % (11.5-14.5); WHITE BLOOD COUNT 4.5 K/uL (4.8-10.8)
[2016-12-20 06:31] LABS: CHLORIDE 106 mmol/L (98-107); SODIUM 138 mmol/L (132-148)
[2016-12-20 06:32] LABS: POTASSIUM 4.6 mmol/L (3.6-5.2)
[2016-12-20 06:34] LABS: GFR AFRICAN-AMERICAN > 60
[2016-12-20 06:35] LABS: BLOOD UREA NITROGEN 11 mg/dL (9-20); CARBON DIOXIDE 23 mmol/L (22-30); GLUCOSE,RANDOM 81 mg/dL (75-110)
--- NOTE | 2016-12-20 11:47 | CP.PCM.PN ---
<Celine Mcintosh - Last Filed: 12/20/16 12:47> Subjective - Date & Time of Evaluation Date of Evaluation: 12/20/16 Time of Evaluation: 11:15 - Subjective Subjective: GI Fellow PGY4 Progress Note Pt seen and evaluated at beside, pt reports doing better this am. Pt denies any further diarrhea just passing gas, denies abdominal pain, fevers or chills. Discussed with pt about filling out insurance forms to get approved for Harvoni treatment for HepC. Also plan for EGD tomorrow. ROS: A 12pt ROS was obtained and was negative except as above. Objective - Vital Signs/Intake and Output Vital Signs (last 24 hours): Temp Pulse Resp BP Pulse Ox 97.4 F L 72 16 132/78 100 12/20/16 08:00 12/20/16 04:00 12/20/16 04:00 12/20/16 04:00 12/20/16 04:00 Intake and Output: 12/20/16 12/20/16 06:59 18:59 Intake Total 400 600 Balance 400 600 - Medications Medications: Current Medications Acetaminophen (Tylenol 325mg Tab) 650 mg PO Q6 PRN PRN Reason: Fever >100.4 F Famotidine (Pepcid) 20 mg PO DAILY [facility] Last Admin: 12/20/16 10:36 Dose: 20 mg Heparin Sodium (Porcine) (Heparin) 5,000 units SC Q12 [facility] Last Admin: 12/20/16 10:36 Dose: 5,000 units Metronidazole (Flagyl) 500 mg in 100 mls @ 100 mls/hr IVPB Q8 [facility] Last Admin: 12/20/16 05:06 Dose: 100 mls/hr Aztreonam 2 gm/ Sodium (Chloride) 100 mls @ 100 mls/hr IVPB Q8H [facility] Last Admin: 12/20/16 04:00 Dose: 100 mls/hr Sodium Chloride (Sodium Chloride 0.9%) 1,000 mls @ 75 mls/hr IV .[id number] [facility] Last Admin: 12/20/16 05:02 Dose: 75 mls/hr Meclizine HCl (Antivert) 25 mg PO BID PRN PRN Reason: Dizziness Ondansetron HCl (Zofran Inj) 4 mg IVP Q6 PRN PRN Reason: Nausea/Vomiting - Labs Labs: 12/20/16 06:12 12/20/16 06:12 PT 17.5 SECONDS (9.7-12.2) H 12/19/16 11:26 INR 1.5 12/19/16 11:26 - Constitutional Appears: Well, Non-toxic, No Acute Distress - Head Exam Head Exam: ATRAUMATIC, NORMAL INSPECTION, NORMOCEPHALIC - Eye Exam Eye Exam: EOMI, Normal appearance Pupil Exam: NORMAL ACCOMODATION, PERRL - ENT Exam ENT Exam: Mucous Membranes Moist, Normal Exam - Neck Exam Neck Exam: Full ROM, Normal Inspection - Respiratory Exam Respiratory Exam: Clear to Ausculation Bilateral, NORMAL BREATHING PATTERN - Cardiovascular Exam Cardiovascular Exam: REGULAR RHYTHM, +S1, +S2 - GI/Abdominal Exam GI & Abdominal Exam: Soft, Normal Bowel Sounds. absent: Distended, Tenderness, Organomegaly - Rectal Exam Rectal Exam: Deferred - Extremities Exam Extremities Exam: Full ROM, Normal Inspection. absent: Pedal Edema - Back Exam Back Exam: NORMAL INSPECTION - Neurological Exam Neurological Exam: Alert, Awake, Oriented x3 - Psychiatric Exam Psychiatric exam: Normal Affect, Normal Mood - Skin Skin Exam: Dry, Intact, Normal Color, Pallor, Warm Assessment and Plan - Assessment and Plan (Free Text) Assessment: This is a 61yM with pmhx of HCV, vertigo who presents to hospital with complaint of watery diarrhea for the past one month. He describes having up to 7 -10 loose watery, non bloody bowel movements everyday with prior normal bowel habits. He was treated outpatient with po abx cipro/flagyl but his symptoms persisted. He is treatment naive for HCV, and has been worked up for therapy as outpatient with . He had a colonoscopy in May 2016 which showed a cecal AVM, diverticulosis, and internal hemorrhoids. 1. Diarrhea 2. Cirrhosis 3. Transaminitis 4. Thrombocytopenia 5. Hep C Plan: -Continue supportive care, pt clinically improving with no further diarrhea -Will advance to regular diet today and NPO after midnight for EGD -Stool studies negative for ova/parasites/c.diff -Continue IV Aztreonam since pt has penicillin allergy, continue Metronidazole -Thrombocytopenia likely due to liver disease -Pt has an extensive workup as an outpt for HepC/cirrhosis: viral load>2million , Genotype 1a, F4, AFP49, CT Liver negative for lesions, plan to treat with Hannah after insurance approval as outpt -Plan for EGD tomorrow for variceal screening, consent signed and in chart -Will continue to follow pt closely and make further recommendations <Ron Valencia - Last Filed: 12/20/16 13:00> Objective - Vital Signs/Intake and Output Vital Signs (last 24 hours): Temp Pulse Resp BP Pulse Ox 97.4 F L 72 16 132/78 100 12/20/16 08:00 12/20/16 04:00 12/20/16 04:00 12/20/16 04:00 12/20/16 04:00 Intake and Output: 12/20/16 12/20/16 06:59 18:59 Intake Total 400 600 Balance 400 600 - Medications Medications: Current Medications Acetaminophen (Tylenol 325mg Tab) 650 mg PO Q6 PRN PRN Reason: Fever >100.4 F Carvedilol (Coreg) 3.125 mg PO BID [facility] Famotidine (Pepcid) 20 mg PO DAILY [facility] Last Admin: 12/20/16 10:36 Dose: 20 mg Heparin Sodium (Porcine) (Heparin) 5,000 units SC Q12 [facility] Last Admin: 12/20/16 10:36 Dose: 5,000 units Metronidazole (Flagyl) 500 mg in 100 mls @ 100 mls/hr IVPB Q8 [facility] Last Admin: 12/20/16 05:06 Dose: 100 mls/hr Aztreonam 2 gm/ Sodium (Chloride) 100 mls @ 100 mls/hr IVPB Q8H [facility] Last Admin: 12/20/16 04:00 Dose: 100 mls/hr Sodium Chloride (Sodium Chloride 0.9%) 1,000 mls @ 75 mls/hr IV .[id number] [facility] Last Admin: 12/20/16 05:02 Dose: 75 mls/hr Meclizine HCl (Antivert) 25 mg PO BID PRN PRN Reason: Dizziness Ondansetron HCl (Zofran Inj) 4 mg IVP Q6 PRN PRN Reason: Nausea/Vomiting - Labs Labs: 12/20/16 06:12 12/20/16 06:12 PT 17.5 SECONDS (9.7-12.2) H 12/19/16 11:26 INR 1.5 12/19/16 11:26 Attending/Attestation - Attestation I have personally seen and examined this patient.: Yes I have fully participated in the care of the patient.: Yes I have reviewed all pertinent clinical information, including history, physical exam and plan: Yes Notes (Text): 12/20/16 12:59 61 year old male with h/o HCV Cirrhosis a/w diarrhea. 1. Diarrhea 2. Cirrhosis 3. Hepatitis C Plan: -diarrhea improved / resolved -tolerating diet -recommend EGD tomorrow for variceal assessment -outpatient treatment for hep c recommended
--- NOTE | 2016-12-20 20:30 | CP.PCM.PN ---
<Juan Alberto Ocampo - Last Filed: 12/20/16 20:25> Subjective - Date & Time of Evaluation Date of Evaluation: 12/20/16 Time of Evaluation: 20:25 - Subjective Subjective: PGY1 Note for Dr. Bedoya HPI: Patient seen and examined at bedside. Doing well with no complaints at this time. Had some diarrhea this morning but much less than before. Stating he is having some solid stool now. No belly pain. Able to tolerate diet. Objective - Vital Signs/Intake and Output Vital Signs (last 24 hours): Temp Pulse Resp BP Pulse Ox 98.2 F 72 16 132/78 100 12/20/16 14:00 12/20/16 04:00 12/20/16 04:00 12/20/16 04:00 12/20/16 04:00 Intake and Output: 12/20/16 12/21/16 18:59 06:59 Intake Total 1700 Balance 1700 - Medications Medications: Current Medications Acetaminophen (Tylenol 325mg Tab) 650 mg PO Q6 PRN PRN Reason: Fever >100.4 F Carvedilol (Coreg) 3.125 mg PO BID [facility] Last Admin: 12/20/16 18:48 Dose: 3.125 mg Famotidine (Pepcid) 20 mg PO DAILY [facility] Last Admin: 12/20/16 10:36 Dose: 20 mg Heparin Sodium (Porcine) (Heparin) 5,000 units SC Q12 [facility] Last Admin: 12/20/16 10:36 Dose: 5,000 units Metronidazole (Flagyl) 500 mg in 100 mls @ 100 mls/hr IVPB Q8 [facility] Last Admin: 12/20/16 13:25 Dose: 100 mls/hr Aztreonam 2 gm/ Sodium (Chloride) 100 mls @ 100 mls/hr IVPB Q8H [facility] Last Admin: 12/20/16 12:00 Dose: 100 mls/hr Sodium Chloride (Sodium Chloride 0.9%) 1,000 mls @ 75 mls/hr IV .[id number] [facility] Last Admin: 12/20/16 18:49 Dose: 75 mls/hr Meclizine HCl (Antivert) 25 mg PO BID PRN PRN Reason: Dizziness Last Admin: 12/20/16 13:24 Dose: 25 mg Ondansetron HCl (Zofran Inj) 4 mg IVP Q6 PRN PRN Reason: Nausea/Vomiting - Labs Labs: 12/20/16 06:12 12/20/16 06:12 PT 17.5 SECONDS (9.7-12.2) H 12/19/16 11:26 INR 1.5 12/19/16 11:26 - Constitutional Appears: Well, Non-toxic, No Acute Distress - Head Exam Head Exam: ATRAUMATIC, NORMAL INSPECTION, NORMOCEPHALIC - Eye Exam Eye Exam: EOMI - ENT Exam ENT Exam: Mucous Membranes Moist - Neck Exam Neck Exam: Full ROM - Respiratory Exam Respiratory Exam: Clear to Ausculation Bilateral, NORMAL BREATHING PATTERN - Cardiovascular Exam Cardiovascular Exam: REGULAR RHYTHM - GI/Abdominal Exam GI & Abdominal Exam: Soft, Normal Bowel Sounds. absent: Distended, Tenderness - Extremities Exam Extremities Exam: absent: Joint Swelling, Tenderness - Back Exam Back Exam: absent: CVA tenderness (L), CVA tenderness (R) - Neurological Exam Neurological Exam: Alert, Awake, Oriented x3 - Psychiatric Exam Psychiatric exam: Normal Affect, Normal Mood - Skin Skin Exam: Dry, Intact, Normal Color, Warm Assessment and Plan - Assessment and Plan (Free Text) Assessment: Diverticulitis * GI ([place]) * Aztreonam due to failed cipro outpatient and PCN allergy * EGD screening for varices tomorrow * Continue IVF * Iron profile = Iron 195, TIBC 252, % Sat 77 * Thrombocytopenia likely secondary to Liver Dz * Pt has an extensive workup as an outpt for HepC/cirrhosis: viral load> 2million, Genotype 1a, F4, AFP49, CT Liver negative for lesions, plan to treat with Harvoni after insurance approval as outpt * Recovering * CT does not show any overt signs of inflammation (stranding or wall thickening ), numerous tics through majority of colon * Aztreonam 2g IV Q8 * Flagyl IV 500mg Q8 * Regular Diet Diarrhea * Stool C. diff negative * Stool WBC negative * Stool Occult blood * negative * Stool O/P - negative * H. pylori Ag Hx of Vertigo * Meclezine 25mg PRN PPX * Pepcid 20mg QD * SCDs * Ambulate <Hardeep Bedoya H - Last Filed: 12/21/16 07:14> Objective - Vital Signs/Intake and Output Vital Signs (last 24 hours): Temp Pulse Resp BP Pulse Ox 98.4 F 72 16 130/77 100 12/21/16 04:00 12/21/16 04:00 12/21/16 04:00 12/21/16 04:00 12/21/16 04:00 Intake and Output: 12/21/16 12/21/16 06:59 18:59 Intake Total 1900 Balance 1900 - Medications Medications: Current Medications Acetaminophen (Tylenol 325mg Tab) 650 mg PO Q6 PRN PRN Reason: Fever >100.4 F Carvedilol (Coreg) 3.125 mg PO BID [facility] Last Admin: 12/20/16 18:48 Dose: 3.125 mg Famotidine (Pepcid) 20 mg PO DAILY [facility] Last Admin: 12/20/16 10:36 Dose: 20 mg Heparin Sodium (Porcine) (Heparin) 5,000 units SC Q12 [facility] Last Admin: 12/20/16 22:00 Dose: 5,000 units Metronidazole (Flagyl) 500 mg in 100 mls @ 100 mls/hr IVPB Q8 [facility] Last Admin: 12/21/16 05:30 Dose: 100 mls/hr Aztreonam 2 gm/ Sodium (Chloride) 100 mls @ 100 mls/hr IVPB Q8H [facility] Last Admin: 12/21/16 04:00 Dose: 100 mls/hr Meclizine HCl (Antivert) 25 mg PO BID PRN PRN Reason: Dizziness Last Admin: 12/20/16 13:24 Dose: 25 mg Ondansetron HCl (Zofran Inj) 4 mg IVP Q6 PRN PRN Reason: Nausea/Vomiting - Labs Labs: 12/21/16 06:16 12/21/16 06:16 PT 17.5 SECONDS (9.7-12.2) H 12/19/16 11:26 INR 1.5 12/19/16 11:26 Attending/Attestation - Attestation I have personally seen and examined this patient.: Yes I have fully participated in the care of the patient.: Yes I have reviewed all pertinent clinical information, including history, physical exam and plan: Yes Notes (Text): Medical Attending: Patient was seen and examined by me. Agree with the above note by the resident. The patient appeared very well when we saw him. He was not in any acute distress. Also abdominal pain was minimal. Diarrhea was also reported as minimal as well. When seen in the morning the patient was tolerating food very well. GI is planning on possible endoscopy At this time the patient is on IV abx Aztreonam and Roxana Bedoya
[2016-12-21] MEDS: Aztreonam 2 GM in Sodium Chloride 0.9% 100 ML IVPB SCH ×3 (04:00→20:00)
[2016-12-21] MEDS: metroNIDAZOLE IV 500 mg/100 ml 500 MG/100 ML BAG IVPB SCH ×3 (05:30→21:47)
[2016-12-21 06:22] LABS: BASO # 0.1 K/uL (0.0-0.2); EOS # 0.5 K/uL (0.0-0.7); EOS % 9.1 % (0.0-4.0); HEMATOCRIT 38.7 % (35.0-51.0); LYMPH # 1.9 K/uL (1.0-4.3); LYMPH % 37.4 % (20.0-40.0); MEAN CELL VOLUME 96.2 fL (80.0-94.0); MEAN CORPUSCULAR HEMOGLOBIN 32.7 pg (27.0-31.0); MEAN PLATELET VOLUME 9.4 fL (7.2-11.7); MONO # 0.5 K/uL (0.0-0.8); MONO % 9.2 % (0.0-10.0); NRBC % 0.2 % (0.0-2.0); RED CELL DISTRIBUTION WIDTH 15.3 % (11.5-14.5); WHITE BLOOD COUNT 5.1 K/uL (4.8-10.8)
[2016-12-21 06:38] LABS: CHLORIDE 106 mmol/L (98-107); POTASSIUM 4.4 mmol/L (3.6-5.2); SODIUM 139 mmol/L (132-148)
[2016-12-21 06:40] LABS: GFR AFRICAN-AMERICAN > 60
[2016-12-21 06:41] LABS: BLOOD UREA NITROGEN 13 mg/dL (9-20); CALCIUM 7.7 mg/dl (8.6-10.4); CARBON DIOXIDE 25 mmol/L (22-30); GLUCOSE,RANDOM 78 mg/dL (75-110)
[2016-12-21] MEDS ORDERED: Propofol 10 mg/ml Inj (20 ML) ONE ×2 (09:44)
[2016-12-21] MEDS ORDERED: Lactated Ringer's 1,000 ML IV ONE (09:44)
[2016-12-21] MEDS ORDERED: Lactated Ringer's 500 ML IV SCH (10:00)
--- NOTE | 2016-12-21 14:55 | CP.PCM.PN ---
<Juan Alberto Ocampo - Last Filed: 12/21/16 14:49> Subjective - Date & Time of Evaluation Date of Evaluation: 12/21/16 Time of Evaluation: 14:49 - Subjective Subjective: PGY1 Note for Dr. Bedoya Patient seen and examined today. Doing well with no complaints at this time. No diarrhea, tolerating diet. Had EGD tpday which he tolerated well. If he does well today and tomorrow can go home tomorrow. Objective - Vital Signs/Intake and Output Vital Signs (last 24 hours): Temp Pulse Resp BP Pulse Ox 97.3 F L 60 10 L 131/79 100 12/21/16 10:45 12/21/16 10:45 12/21/16 10:45 12/21/16 10:45 12/21/16 10:45 Intake and Output: 12/21/16 12/21/16 06:59 18:59 Intake Total 1900 Output Total 350 Balance 1900 -350 - Medications Medications: Current Medications Acetaminophen (Tylenol 325mg Tab) 650 mg PO Q6 PRN PRN Reason: Fever >100.4 F Carvedilol (Coreg) 3.125 mg PO BID [facility] Last Admin: 12/21/16 11:47 Dose: Not Given Heparin Sodium (Porcine) (Heparin) 5,000 units SC Q12 [facility] Last Admin: 12/21/16 11:46 Dose: 5,000 units Metronidazole (Flagyl) 500 mg in 100 mls @ 100 mls/hr IVPB Q8 [facility] Last Admin: 12/21/16 14:24 Dose: 100 mls/hr Aztreonam 2 gm/ Sodium (Chloride) 100 mls @ 100 mls/hr IVPB Q8H [facility] Last Admin: 12/21/16 11:52 Dose: 100 mls/hr Meclizine HCl (Antivert) 25 mg PO BID PRN PRN Reason: Dizziness Last Admin: 12/20/16 13:24 Dose: 25 mg Ondansetron HCl (Zofran Inj) 4 mg IVP Q6 PRN PRN Reason: Nausea/Vomiting Pantoprazole Sodium (Protonix Ec Tab) 40 mg PO ACB [facility] - Labs Labs: 12/21/16 06:16 12/21/16 06:16 PT 17.5 SECONDS (9.7-12.2) H 12/19/16 11:26 INR 1.5 12/19/16 11:26 - Constitutional Appears: Well, Non-toxic, No Acute Distress - Head Exam Head Exam: ATRAUMATIC, NORMAL INSPECTION, NORMOCEPHALIC - ENT Exam ENT Exam: Mucous Membranes Moist - Respiratory Exam Respiratory Exam: Clear to Ausculation Bilateral, NORMAL BREATHING PATTERN - Cardiovascular Exam Cardiovascular Exam: REGULAR RHYTHM - GI/Abdominal Exam GI & Abdominal Exam: Soft, Normal Bowel Sounds. absent: Distended, Tenderness - Extremities Exam Extremities Exam: absent: Joint Swelling, Tenderness - Neurological Exam Neurological Exam: Alert, Awake, Oriented x3 - Psychiatric Exam Psychiatric exam: Normal Affect, Normal Mood - Skin Skin Exam: Dry, Intact, Normal Color, Warm Assessment and Plan - Assessment and Plan (Free Text) Assessment: Diverticulitis * GI ([facility]) * Aztreonam due to failed cipro outpatient and PCN allergy * EGD today showed portal hypertensive gastropathy, esophageal varices, gastritis with erosions. [address] on esophageal varices * Continue IVF * Iron profile = Iron 195, TIBC 252, % Sat 77 * Thrombocytopenia likely secondary to Liver Dz * Pt has an extensive workup as an outpt for HepC/cirrhosis: viral load> 2million, Genotype 1a, F4, AFP49, CT Liver negative for lesions, plan to treat with Harvoni after insurance approval as outpt * Recovering * CT does not show any overt signs of inflammation (stranding or wall thickening ), numerous tics through majority of colon * Aztreonam 2g IV Q8 * Flagyl IV 500mg Q8 * CLD Diarrhea * Stool C. diff negative * Stool WBC negative * Stool Occult blood * negative * Stool O/P - negative * H. pylori Ag Hx of Vertigo * Meclezine 25mg PRN PPX * Pepcid 20mg QD * SCDs * Ambulate Dispo: Can be D/c tomorrow if diet is tolerated <Hardeep Bedoya - Last Filed: 12/21/16 15:41> Objective - Vital Signs/Intake and Output Vital Signs (last 24 hours): Temp Pulse Resp BP Pulse Ox 97.3 F L 60 10 L 131/79 100 12/21/16 10:45 12/21/16 10:45 12/21/16 10:45 12/21/16 10:45 12/21/16 10:45 Intake and Output: 09/21/17 09/21/17 06:59 18:59 Intake Total 1900 Output Total 350 Balance 1900 -350 - Medications Medications: Current Medications Acetaminophen (Tylenol 325mg Tab) 650 mg PO Q6 PRN PRN Reason: Fever >100.4 F Carvedilol (Coreg) 3.125 mg PO BID [facility] Last Admin: 12/21/16 11:47 Dose: Not Given Heparin Sodium (Porcine) (Heparin) 5,000 units SC Q12 [facility] Last Admin: 12/21/16 11:46 Dose: 5,000 units Metronidazole (Flagyl) 500 mg in 100 mls @ 100 mls/hr IVPB Q8 [facility] Last Admin: 12/21/16 14:24 Dose: 100 mls/hr Aztreonam 2 gm/ Sodium (Chloride) 100 mls @ 100 mls/hr IVPB Q8H [facility] Last Admin: 12/21/16 11:52 Dose: 100 mls/hr Meclizine HCl (Antivert) 25 mg PO BID PRN PRN Reason: Dizziness Last Admin: 12/20/16 13:24 Dose: 25 mg Ondansetron HCl (Zofran Inj) 4 mg IVP Q6 PRN PRN Reason: Nausea/Vomiting Pantoprazole Sodium (Protonix Ec Tab) 40 mg PO ACB [facility] - Labs Labs: 12/21/16 06:16 12/21/16 06:16 PT 17.5 SECONDS (9.7-12.2) H 12/19/16 11:26 INR 1.5 12/19/16 11:26 Attending/Attestation - Attestation I have personally seen and examined this patient.: Yes I have fully participated in the care of the patient.: Yes I have reviewed all pertinent clinical information, including history, physical exam and plan: Yes Notes (Text): Medical attending: Patient was seen and examined by me, agrees the above note by medical dosimetrist. Family members were present in the room as well, the patient was okay with this. Early in the morning the patient had EGD, he had 2 bands placed as well as observation that he has a lot of gastritis We had discussion about this with the patient. Per my discussion with GI the patient can go home tomorrow if he does well with the diet he's on. Thank you very much, Hardeep Bedoya
[2016-12-21 20:21] VITALS: RESP 20; O2SAT 96
[2016-12-22] MEDS: Aztreonam 2 GM in Sodium Chloride 0.9% 100 ML IVPB SCH ×2 (04:30→11:15)
[2016-12-22] MEDS: metroNIDAZOLE IV 500 mg/100 ml 500 MG/100 ML BAG IVPB SCH ×2 (06:08→13:22)
--- NOTE | 2016-12-22 06:54 | CP.PCM.PN ---
<Thaddeus Elaine - Last Filed: 12/22/16 07:32> Subjective - Date & Time of Evaluation Date of Evaluation: 12/22/16 Time of Evaluation: 06:30 - Subjective Subjective: PGY5 GI Fellow Progress Note Patient seen and examined bedside this morning. The patient states that since we last saw the patient, he has had 7 episode of loose watery stool. Denies any abdominal pain but has some very mild discomfort in his chest following esophageal variceal banding. Tolerated liquid diet without issue. Denies any melena, hematochezia. 12 system ROS performed and negative except where stated. Objective - Vital Signs/Intake and Output Vital Signs (last 24 hours): Temp Pulse Resp BP Pulse Ox 98.3 F 65 20 129/77 96 12/21/16 15:00 12/21/16 15:00 12/21/16 15:00 12/21/16 15:00 12/21/16 15:00 Intake and Output: 12/21/16 12/22/16 18:59 06:59 Intake Total 300 Output Total 350 Balance -350 300 - Medications Medications: Current Medications Acetaminophen (Tylenol 325mg Tab) 650 mg PO Q6 PRN PRN Reason: Fever >100.4 F Carvedilol (Coreg) 3.125 mg PO BID [facility] Last Admin: 12/21/16 18:05 Dose: 3.125 mg Heparin Sodium (Porcine) (Heparin) 5,000 units SC Q12 [facility] Last Admin: 12/21/16 21:48 Dose: 5,000 units Metronidazole (Flagyl) 500 mg in 100 mls @ 100 mls/hr IVPB Q8 [facility] Last Admin: 12/22/16 06:08 Dose: 100 mls/hr Aztreonam 2 gm/ Sodium (Chloride) 100 mls @ 100 mls/hr IVPB Q8H [facility] Last Admin: 12/22/16 04:30 Dose: 100 mls/hr Meclizine HCl (Antivert) 25 mg PO BID PRN PRN Reason: Dizziness Last Admin: 12/20/16 13:24 Dose: 25 mg Ondansetron HCl (Zofran Inj) 4 mg IVP Q6 PRN PRN Reason: Nausea/Vomiting Pantoprazole Sodium (Protonix Ec Tab) 40 mg PO ACB [facility] - Labs Labs: 12/21/16 06:16 12/21/16 06:16 PT 17.5 SECONDS (9.7-12.2) H 12/19/16 11:26 INR 1.5 12/19/16 11:26 - Constitutional Appears: Non-toxic, No Acute Distress - Eye Exam Eye Exam: EOMI, PERRL - ENT Exam ENT Exam: Mucous Membranes Moist - Respiratory Exam Respiratory Exam: Clear to Ausculation Bilateral. absent: Rales, Rhonchi, Wheezes - Cardiovascular Exam Cardiovascular Exam: RRR, +S1, +S2 - GI/Abdominal Exam GI & Abdominal Exam: Soft, Normal Bowel Sounds. absent: Distended, Firm, Guarding, Rigid, Tenderness, Organomegaly - Extremities Exam Extremities Exam: Normal Inspection. 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), prior EtOH abuse (now sober) who presented with chronic loose, watery diarrhea (~4 weeks) -Chronic diarrhea -Cirrhosis with esophageal varices s/p esophageal variceal band ligation -HCV, treatment naive - GT1a Plan: -Still having 7+ episodes of loose watery stool at present -O&P, stool cx and c diff all negative -S/P esophageal variceal band ligation -Awaiting stool electrolytes to calculate stool gap -Avoid lactose, sucralose in diet -Would D/C antibiotic therapy in the absence of obvious infectious causes -Start metamucil PO TID -Consider Lomotil/Immodium; could also consider trial of Xifaxin for IBS-D symptoms if needed -Will benefit from outpatient evaluation for liver transplant at [facility] -Outpatient evaluation/treatment of HCV - will likely need NS5a resistance testing *MELD-Na: 16 <Ron Valencia - Last Filed: 12/22/16 07:40> Objective - Vital Signs/Intake and Output Vital Signs (last 24 hours): Temp Pulse Resp BP Pulse Ox 98.3 F 65 20 129/77 96 12/21/16 15:00 12/21/16 15:00 12/21/16 15:00 12/21/16 15:00 12/21/16 15:00 Intake and Output: 12/22/16 12/22/16 06:59 18:59 Intake Total 300 Balance 300 - Medications Medications: Current Medications Acetaminophen (Tylenol 325mg Tab) 650 mg PO Q6 PRN PRN Reason: Fever >100.4 F Carvedilol (Coreg) 3.125 mg PO BID [facility] Last Admin: 12/21/16 18:05 Dose: 3.125 mg Heparin Sodium (Porcine) (Heparin) 5,000 units SC Q12 [facility] Last Admin: 12/21/16 21:48 Dose: 5,000 units Metronidazole (Flagyl) 500 mg in 100 mls @ 100 mls/hr IVPB Q8 [facility] Last Admin: 12/22/16 06:08 Dose: 100 mls/hr Aztreonam 2 gm/ Sodium (Chloride) 100 mls @ 100 mls/hr IVPB Q8H [facility] Last Admin: 12/22/16 04:30 Dose: 100 mls/hr Meclizine HCl (Antivert) 25 mg PO BID PRN PRN Reason: Dizziness Last Admin: 12/20/16 13:24 Dose: 25 mg Ondansetron HCl (Zofran Inj) 4 mg IVP Q6 PRN PRN Reason: Nausea/Vomiting Pantoprazole Sodium (Protonix Ec Tab) 40 mg PO ACB [facility] Psyllium Hydrophilic Mucilloid (Hydrocil Instant) 1 pkt PO TID [facility] - Labs Labs: 12/21/16 06:16 12/21/16 06:16 PT 17.5 SECONDS (9.7-12.2) H 12/19/16 11:26 INR 1.5 12/19/16 11:26 Attending/Attestation - Attestation I have personally seen and examined this patient.: Yes I have fully participated in the care of the patient.: Yes I have reviewed all pertinent clinical information, including history, physical exam and plan: Yes Notes (Text): 12/22/16 07:37 61 year old male with h/o HCV Cirrhosis a/w diarrhea, now s/p EGD with banding of varices. 1. Esophageal varices 2. Cirrhosis 3. Hepatitis C 4. Altered bowel habits Plan: -s/p EGD with banding x 2 -follow up [facility] outpatient -advance diet as tolerated -no strong indication for antibiotics at this point -stool studies all negative -patient reports small soft (non-liquid) Bm several times a day, sometimes with urgency, no bleeding or fever, normal wbc -recommend trial of fiber supplement -consider daily probiotic -ok for discharge -outpatient treatment for hep c recommended
[2016-12-22] MEDS ORDERED: Pantoprazole 40 mg EC Tab PO SCH (07:30)
[2016-12-22 08:45] VITALS: BP 125/69; PULSE 70; TEMP 98.6
[2016-12-22 08:56] LABS: BASO % 0.9 % (0.0-2.0); EOS # 0.2 K/uL (0.0-0.7); EOS % 5.7 % (0.0-4.0); HEMATOCRIT 41.9 % (35.0-51.0); LYMPH # 1.5 K/uL (1.0-4.3); LYMPH % 34.3 % (20.0-40.0); MEAN CELL VOLUME 97.1 fL (80.0-94.0); MEAN CORPUSCULAR HEMOGLOBIN 33.1 pg (27.0-31.0); MEAN CORPUSCULAR HGB CONC 34.1 g/dL (33.0-37.0); MEAN PLATELET VOLUME 9.7 fL (7.2-11.7); MONO # 0.4 K/uL (0.0-0.8); MONO % 8.1 % (0.0-10.0); NRBC % 0.1 % (0.0-2.0); RED CELL DISTRIBUTION WIDTH 15.6 % (11.5-14.5); WHITE BLOOD COUNT 4.3 K/uL (4.8-10.8)
[2016-12-22 09:07] LABS: CHLORIDE 100 mmol/L (98-107); POTASSIUM 4.7 mmol/L (3.6-5.2); SODIUM 141 mmol/L (132-148)
[2016-12-22 09:10] LABS: BLOOD UREA NITROGEN 9 mg/dL (9-20); CARBON DIOXIDE 31 mmol/L (22-30); GFR AFRICAN-AMERICAN > 60; GLUCOSE,RANDOM 81 mg/dL (75-110)
[2016-12-22 09:11] LABS: CALCIUM 8.9 mg/dl (8.6-10.4)
[2016-12-22] MEDS: Psyllium Packet PO SCH ×2 (10:36→13:33)
--- NOTE | 2016-12-22 15:19 | CP.PCM.DIS ---
<Gay Petersen - Last Filed: 12/22/16 15:16> Provider - Provider Date of Admission: 12/20/16 08:55 Attending physician: Hardeep Bedoya DO Consults: Dr. Conde (GI) Time Spent in preparation of Discharge (in minutes): 45 Diagnosis - Discharge Diagnosis (1) Diverticulitis Status: Acute Comment: please see summary (2) Hepatitis C Status: Chronic Comment: please see summary (3) History of vertigo Status: Chronic Comment: please see summary Hospital Course - Lab Results Lab Results: Micro Results 12/21/16 08:00 Naris MRSA Culture - Final MRSA NOT DETECTED 12/19/16 08:25 Naris MRSA Culture (Admit) - Final MRSA NOT DETECTED 12/18/16 17:20 Stool Stool Culture - Final NO SALMONELLA, SHIGELLA OR CAMPYLOBACTER ISOLATED. 12/19/16 Unknown Stool Ova and Parasite Concentrate Exam - Final Most Recent Lab Values WBC 4.3 K/uL (4.8-10.8) L 12/22/16 08:52 RBC 4.32 Mil/uL (4.40-5.90) L 12/22/16 08:52 Hgb 14.3 g/dL (12.0-18.0) 12/22/16 08:52 Hct 41.9 % (35.0-51.0) 12/22/16 08:52 MCV 97.1 fL (80.0-94.0) H 12/22/16 08:52 MCH 33.1 pg (27.0-31.0) H 12/22/16 08:52 MCHC 34.1 g/dL (33.0-37.0) 12/22/16 08:52 RDW 15.6 % (11.5-14.5) H 12/22/16 08:52 Plt Count 113 K/uL (130-400) L 12/22/16 08:52 MPV 9.7 fL (7.2-11.7) 12/22/16 08:52 Neut % (Auto) 51.0 % (50.0-75.0) 12/22/16 08:52 Lymph % (Auto) 34.3 % (20.0-40.0) 12/22/16 08:52 [place] % (Auto) 8.1 % (0.0-10.0) 12/22/16 08:52 Eos % (Auto) 5.7 % (0.0-4.0) H 12/22/16 08:52 Baso % (Auto) 0.9 % (0.0-2.0) 12/22/16 08:52 Neut # 2.2 K/uL (1.8-7.0) 12/22/16 08:52 Lymph # 1.5 K/uL (1.0-4.3) 12/22/16 08:52 [place] # 0.4 K/uL (0.0-0.8) 12/22/16 08:52 Eos # 0.2 K/uL (0.0-0.7) 12/22/16 08:52 Baso # 0.0 K/uL (0.0-0.2) 12/22/16 08:52 Differential Comment 12/18/16 10:36 PT 17.5 SECONDS (9.7-12.2) H 12/19/16 11:26 INR 1.5 12/19/16 11:26 Sodium 141 mmol/L (132-148) 12/22/16 08:52 Potassium 4.7 mmol/L (3.6-5.2) 12/22/16 08:52 Chloride 100 mmol/L (98-107) 12/22/16 08:52 Carbon Dioxide 31 mmol/L (22-30) H 12/22/16 08:52 Anion Gap 15 (10-20) 12/22/16 08:52 BUN 9 mg/dL (9-20) 12/22/16 08:52 Creatinine 0.6 MG/DL (0.8-1.5) L 12/22/16 08:52 Est GFR ( Amer) > 60 12/22/16 08:52 Est GFR (Non-Af Amer) > 60 12/22/16 08:52 Random Glucose 81 mg/dL (75-110) 12/22/16 08:52 Calcium 8.9 mg/dl (8.6-10.4) 12/22/16 08:52 Iron 195 ug/dL (49-181) H 12/19/16 16:06 TIBC 252 ug/dL (250-450) 12/19/16 16:06 % Saturation 77 (20-55) H 12/19/16 16:06 Total Bilirubin 1.4 mg/dL (0.2-1.3) H 12/19/16 11:26 Direct Bilirubin 0.8 mg/dL (0.0-0.4) H 12/19/16 11:26 AST 173 U/L (17-59) H 12/19/16 11:26 ALT 97 U/L (21-72) H 12/19/16 11:26 Alkaline Phosphatase 111 U/L (38-126) 12/19/16 11:26 Total Protein 5.5 g/dL (6.3-8.3) L 12/19/16 11:26 Albumin 2.6 g/dL (3.5-5.0) L 12/19/16 11:26 Globulin 3.0 gm/dL (2.2-3.9) 12/19/16 11:26 Albumin/Globulin Ratio 0.9 (1.0-2.1) L 12/19/16 11:26 Lipase 126 U/L (23-300) 12/18/16 10:36 Urine Color Yellow (YELLOW) 12/18/16 11:17 Urine Clarity Clear (Clear) 12/18/16 11:17 Urine pH 5.0 (5.0-8.0) 12/18/16 11:17 Ur Specific [place] 1.014 (1.003-1.030) 12/18/16 11:17 Urine Protein Negative mg/dL (NEGATIVE) 12/18/16 11:17 Urine Glucose (UA) Normal mg/dL (Normal) 12/18/16 11:17 Urine Ketones Negative mg/dL (NEGATIVE) 12/18/16 11:17 Urine Blood Negative (NEGATIVE) 12/18/16 11:17 Urine Nitrate Negative (NEGATIVE) 12/18/16 11:17 Urine Bilirubin Negative (NEGATIVE) 12/18/16 11:17 Urine Urobilinogen Normal mg/dL (0.2-1.0) 12/18/16 11:17 Ur Leukocyte Esterase Trace Tammy/uL (Negative) 12/18/16 11:17 Urine WBC (Auto) < 1 /hpf (0-5) 12/18/16 11:17 Urine RBC (Auto) < 1 /hpf (0-3) 12/18/16 11:17 Stool Fat, Qual See note 12/19/16 18:18 Stool Occult Blood Negative (NEGATIVE) 12/19/16 18:18 Stool Leukocytes, Qual Negative (NEGATIVE) 12/18/16 17:19 Stool H. pylori Ag Not detected (Not Detected) 12/19/16 18:18 IgG 1367.2 mg/dL (700.0-1600.0) 12/19/16 11:47 C. difficile Ag & Toxin Negative (NEGATIVE) 12/18/16 17:19 H. pylori Source Stool 12/19/16 18:18 Hepatitis A IgM Ab Negative (NEGATIVE) 12/19/16 16:06 Hep Bs Antigen Negative (NEGATIVE) 12/19/16 16:06 Hep B Core IgM Ab Negative (NEGATIVE) 12/19/16 16:06 Hepatitis C Antibody Reactive (NEGATIVE) 12/19/16 16:06 - Hospital Course Hospital Course: HPI: Patient is a 61 year old Macedonian speaking male presenting the ED with constant diarrhea. The diarrhea began 1 month ago. He went to his PMD (Dr. Anglin) two weeks ago who started him on Flagyl 500mg BID and Cipro 500mg BID for suspected bacterial infection. The abx have not helped and the diarrhea has continued. This morning, the patient woke up feeling weak and the said "that is enough we are going to the ER". He denies any blood in the stool. He states that it is watery diarrhea and has gone so many times he lost count. The episodes are made worse with every meal. Although the patient is hungry he is unable to retain foods as it immediately causes an episode of diarrhea. During each episode of diarrhea he has diffuse abdominal pain, but it stops after defecation." Diverticulitis: Per Dr. Conde, patient was on cipro outpatient which failed and PCN allergy so Aztreonam 2g IV Q8 and Flagyl IV 500mg Q8 was started. 12/21 EGD was performed which showed portal hypertensive gastropathy, esophageal varices, and gastritis with erosions. 2 bands were placed on esophageal varicies and IVF were continued. Iron profile: Iron 195, TIBC 252, %Sat 77. Hepatitis C/Cirrhosis: Patient had an extensive workup as an outpatient for HepC /cirrhosis which showed viral load >2 million, genotype 1a, F4, AFP49, CT liver negative for lesions. Harvoni treatment was planned after insurance approval as outpatient. Followup with [facility] as outpatient. Diarrhea: Stool tests were ordered: Stool C. diff negative, WBC negative, blood negative, O/P negative, H. pylori Ag negative. 12/22 patient had BM several times a day, sometimes with urgency, no bleeding, fever, and normal WBC. Diet was advanced as tolerated. Hx of Vertigo: Patient was treated with Meclezine 25mg PRN Prophylactic treatment: Patient was treated with Pepcid 20mg QD, SCDs, and ambulation. Patient able to tolerate food on day of discharge with no nausea or vomiting. Patient had no loose stools today. Patient feeling much better. Patient stable for discharge as per Dr. Bedoya. Patient to follow up with Dr. Winston and Dr. Conde within one week. This is a summary of the patient's hospital course, please see chart for details. Discharge Exam - Head Exam Head Exam: ATRAUMATIC, NORMAL INSPECTION, NORMOCEPHALIC - Eye Exam Eye Exam: EOMI, Normal appearance - ENT Exam ENT Exam: Mucous Membranes Moist - Neck Exam Neck exam: Full Rom - Respiratory Exam Respiratory Exam: Clear to PA & Lateral, NORMAL BREATHING PATTERN, UNREMARKABLE - Cardiovascular Exam Cardiovascular Exam: REGULAR RHYTHM, RRR - GI/Abdominal Exam GI & Abdominal Exam: Normal Bowel Sounds, Soft. absent: Tenderness - Extremities Exam Extremities exam: full ROM, normal inspection - Neurological Exam Neurological exam: Oriented x3 - Psychiatric Exam Psychiatric exam: Normal Affect, Normal Mood - Skin Skin Exam: Intact, Normal Color, Warm Discharge Plan - Discharge Medications Prescriptions: Carvedilol [Coreg] 3.125 mg PO BID #60 tab Meclizine [Meclizine*] 1 tab PO BID PRN #60 tab PRN Reason: Motion Sickness Metronidazole [Flagyl] 500 mg PO TID #9 tablet - Follow Up Plan Condition: STABLE Disposition: HOME/ ROUTINE Instructions: Meclizine (By mouth), Metronidazole (By mouth), Carvedilol (By mouth), Acute Diarrhea (GEN), Acute Abdominal Pain (DC) Additional Instructions: Patient stable for discharge as per Dr. Bedoya. Patient to follow up with Dr. Winston within one week of discharge. Patient to follow up with Dr. Conde within one week of discharge. Patient should take Flagyl 500 mg three times a day for 3 more days. Patient should continue taking meclizine 25 mg twice a day. Patient should take Carvedilol 3.125 mg twice a day. Patient should return to Emergency Room if symptoms worsen or persist. Patient explained instructions who understands and agrees. Referrals: Lonnie Conde MD [Staff Provider] - Aravind Winston MD [Staff Provider] - <Hardeep Bedoya - Last Filed: 12/22/16 16:27> Provider - Provider Date of Admission: 12/20/16 08:55 Attending physician: Hardeep Bedoya, Hospital Course - Lab Results Lab Results: Micro Results 12/21/16 08:00 Naris MRSA Culture - Final MRSA NOT DETECTED 12/19/16 08:25 Naris MRSA Culture (Admit) - Final MRSA NOT DETECTED 12/18/16 17:20 Stool Stool Culture - Final NO SALMONELLA, SHIGELLA OR CAMPYLOBACTER ISOLATED. 12/19/16 Unknown Stool Ova and Parasite Concentrate Exam - Final Most Recent Lab Values WBC 4.3 K/uL (4.8-10.8) L 12/22/16 08:52 RBC 4.32 Mil/uL (4.40-5.90) L 12/22/16 08:52 Hgb 14.3 g/dL (12.0-18.0) 12/22/16 08:52 Hct 41.9 % (35.0-51.0) 12/22/16 08:52 MCV 97.1 fL (80.0-94.0) H 12/22/16 08:52 MCH 33.1 pg (27.0-31.0) H 12/22/16 08:52 MCHC 34.1 g/dL (33.0-37.0) 12/22/16 08:52 RDW 15.6 % (11.5-14.5) H 12/22/16 08:52 Plt Count 113 K/uL (130-400) L 12/22/16 08:52 MPV 9.7 fL (7.2-11.7) 12/22/16 08:52 Neut % (Auto) 51.0 % (50.0-75.0) 12/22/16 08:52 Lymph % (Auto) 34.3 % (20.0-40.0) 12/22/16 08:52 [place] % (Auto) 8.1 % (0.0-10.0) 12/22/16 08:52 Eos % (Auto) 5.7 % (0.0-4.0) H 12/22/16 08:52 Baso % (Auto) 0.9 % (0.0-2.0) 12/22/16 08:52 Neut # 2.2 K/uL (1.8-7.0) 12/22/16 08:52 Lymph # 1.5 K/uL (1.0-4.3) 12/22/16 08:52 [place] # 0.4 K/uL (0.0-0.8) 12/22/16 08:52 Eos # 0.2 K/uL (0.0-0.7) 12/22/16 08:52 Baso # 0.0 K/uL (0.0-0.2) 12/22/16 08:52 Differential Comment 12/18/16 10:36 PT 17.5 SECONDS (9.7-12.2) H 12/19/16 11:26 INR 1.5 12/19/16 11:26 Sodium 141 mmol/L (132-148) 12/22/16 08:52 Potassium 4.7 mmol/L (3.6-5.2) 12/22/16 08:52 Chloride 100 mmol/L (98-107) 12/22/16 08:52 Carbon Dioxide 31 mmol/L (22-30) H 12/22/16 08:52 Anion Gap 15 (10-20) 12/22/16 08:52 BUN 9 mg/dL (9-20) 12/22/16 08:52 Creatinine 0.6 MG/DL (0.8-1.5) L 12/22/16 08:52 Est GFR ( Amer) > 60 12/22/16 08:52 Est GFR (Non-Af Amer) > 60 12/22/16 08:52 Random Glucose 81 mg/dL (75-110) 12/22/16 08:52 Calcium 8.9 mg/dl (8.6-10.4) 12/22/16 08:52 Iron 195 ug/dL (49-181) H 12/19/16 16:06 TIBC 252 ug/dL (250-450) 12/19/16 16:06 % Saturation 77 (20-55) H 12/19/16 16:06 Total Bilirubin 1.4 mg/dL (0.2-1.3) H 12/19/16 11:26 Direct Bilirubin 0.8 mg/dL (0.0-0.4) H 12/19/16 11:26 AST 173 U/L (17-59) H 12/19/16 11:26 ALT 97 U/L (21-72) H 12/19/16 11:26 Alkaline Phosphatase 111 U/L (38-126) 12/19/16 11:26 Total Protein 5.5 g/dL (6.3-8.3) L 12/19/16 11:26 Albumin 2.6 g/dL (3.5-5.0) L 12/19/16 11:26 Globulin 3.0 gm/dL (2.2-3.9) 12/19/16 11:26 Albumin/Globulin Ratio 0.9 (1.0-2.1) L 12/19/16 11:26 Lipase 126 U/L (23-300) 12/18/16 10:36 Urine Color Yellow (YELLOW) 12/18/16 11:17 Urine Clarity Clear (Clear) 12/18/16 11:17 Urine pH 5.0 (5.0-8.0) 12/18/16 11:17 Ur Specific [place] 1.014 (1.003-1.030) 12/18/16 11:17 Urine Protein Negative mg/dL (NEGATIVE) 12/18/16 11:17 Urine Glucose (UA) Normal mg/dL (Normal) 12/18/16 11:17 Urine Ketones Negative mg/dL (NEGATIVE) 12/18/16 11:17 Urine Blood Negative (NEGATIVE) 12/18/16 11:17 Urine Nitrate Negative (NEGATIVE) 12/18/16 11:17 Urine Bilirubin Negative (NEGATIVE) 12/18/16 11:17 Urine Urobilinogen Normal mg/dL (0.2-1.0) 12/18/16 11:17 Ur Leukocyte Esterase Trace Tammy/uL (Negative) 12/18/16 11:17 Urine WBC (Auto) < 1 /hpf (0-5) 12/18/16 11:17 Urine RBC (Auto) < 1 /hpf (0-3) 12/18/16 11:17 Stool Fat, Qual See note 12/19/16 18:18 Stool Occult Blood Negative (NEGATIVE) 12/19/16 18:18 Stool Leukocytes, Qual Negative (NEGATIVE) 12/18/16 17:19 Stool H. pylori Ag Not detected (Not Detected) 12/19/16 18:18 IgG 1367.2 mg/dL (700.0-1600.0) 12/19/16 11:47 C. difficile Ag & Toxin Negative (NEGATIVE) 12/18/16 17:19 H. pylori Source Stool 12/19/16 18:18 Hepatitis A IgM Ab Negative (NEGATIVE) 12/19/16 16:06 Hep Bs Antigen Negative (NEGATIVE) 12/19/16 16:06 Hep B Core IgM Ab Negative (NEGATIVE) 12/19/16 16:06 Hepatitis C Antibody Reactive (NEGATIVE) 12/19/16 16:06 Attending/Attestation - Attestation I have personally seen and examined this patient.: Yes I have fully participated in the care of the patient.: Yes I have reviewed all pertinent clinical information, including history, physical exam and plan: Yes
--- NOTE | 2016-12-25 22:19 | CARD ---
APPROVED REPORT EKG Measurement Heart [id number] ID [id number] <Conclusion> Normal sinus rhythm Normal ECG
== END 2016-12-22 16:59 | disposition home or self-care (01) | DRG 392 ==
LOC: C.ER 09:05 → C.9E 15:02 → C.9I 12-19 07:20 → OBSVTOIN 12-20 08:55 → C.3T 12-21 07:29
PROVIDERS: ADMIT Hospitalist; ATTEND Hospitalist
PROC: 0DB68ZX Excision of Stomach, Via Natural or Artificial Opening Endoscopic, Diagnostic (ICD-10-PCS; 2016-12-21)
PROC: 06L34CZ Occlusion of Esophageal Vein with Extraluminal Device, Percutaneous Endoscopic Approach (ICD-10-PCS; principal; 2016-12-21 09:40)
DX: K57.92 Diverticulitis of intestine, part unspecified, without perforation or abscess without bleeding (principal); I85.10 Secondary esophageal varices without bleeding; K76.6 Portal hypertension; D69.59 Other secondary thrombocytopenia; B19.20 Unspecified viral hepatitis C without hepatic coma; J45.909 Unspecified asthma, uncomplicated; K29.70 Gastritis, unspecified, without bleeding; K31.89 Other diseases of stomach and duodenum; K52.9 Noninfective gastroenteritis and colitis, unspecified; K64.8 Other hemorrhoids; K74.60 Unspecified cirrhosis of liver; R74.0 Nonspecific elevation of levels of transaminase and lactic acid dehydrogenase [LDH]; R42 Dizziness and giddiness; Z80.9 Family history of malignant neoplasm, unspecified; Z87.891 Personal history of nicotine dependence

== ENCOUNTER 2017-01-18 11:44 | Inpatient (IN) | payer OTHER ==
[2017-01-18 11:44] VITALS: BMI 29.3
--- NOTE | 2017-01-18 12:48 | C.PDOC ---
History Of Present Illness 61 y/o M c PMHx Hep C, vertigo brought in by family for concern for Depression. Family states patient has lost 20 pounds in the last month, poor appetite, stays in bed all day, barely speaks, does not leave home. They deny any report of suicidal ideation, homicidal ideation, or apparent hallucinations. The patient states that he has vertigo, which he has had for years, and the imbalance that he feels makes it difficult for him to walk around and do things. Denies fever, chills, chest pain, vomiting, numbness, motor weakness. Time Seen by Provider: 01/18/17 12:33 Chief Complaint (Nursing): Dizziness/Lightheaded Past Medical History Vital Signs: Last Vital Signs Temp 97.9 F 01/18/17 13:55 Pulse 55 L 01/18/17 13:55 Resp 16 01/18/17 13:55 BP 116/65 01/18/17 13:55 Pulse Ox 99 01/18/17 13:55 - Medical History PMH: Asthma, Gastritis Denies: Chronic Kidney Disease Surgical History: Endoscopy - [facility] Procedures EXCISION OF STOMACH, ENDO, DIAGN (12/20/16) OCCLUSION ESOPHAGEAL VEIN W EXTRALUM DEV, PERC ENDO (12/20/16) Family History: States: No Known Family Hx - Social History Hx Alcohol Use: No Hx Substance Use: No - Immunization History Hx Tetanus Toxoid Vaccination: No Hx Influenza Vaccination: No Hx Pneumococcal Vaccination: No Review Of Systems Except As Marked, All Systems Reviewed And Found Negative. Constitutional: Negative for: Fever Cardiovascular: Negative for: Chest Pain Physical Exam - Physical Exam Additional Physical Exam Comments: Constitutional: No acute distress. Head: Normocephalic. Atraumatic. Eyes: PERRL. ENT: Moist mucous membranes. Neck: Supple. Cardiovascular: Regular rate. Radial pulse 2+ bilaterally. Chest: No tenderness. Respiratory: Clear to auscultation bilaterally. GI: Soft. Nontender. Nondistended. Back: No CVA tenderness. Musculoskeletal: No tenderness or swelling of extremities. Skin: No rash. Neurologic: Alert, no focal deficit. Oriented x 3. Cranial nerves II-XII intact. Sensation to light touch intact bilaterally. Motor 5/5 x 4. Gait normal. Romberg negative. Finger to nose, heel to benitez, and rapid alternating movements normal. ED Course And Treatment - Laboratory Results Result Diagrams: 01/18/17 12:54 01/18/17 12:54 O2 Sat by Pulse Oximetry: 100 (RA) Pulse Ox Interpretation: Normal Medical Decision Making Medical Decision Making: Will medically clear for psychiatric evaluation. PROCEDURE: CT HEAD WITHOUT CONTRAST. HISTORY: imbalance COMPARISON: None available. The the TECHNIQUE: Axial computed tomography images were obtained through the head/brain without intravenous contrast. Radiation dose: Total exam DLP = 880.33 mGy-cm. This CT exam was performed using one or more of the following dose reduction techniques: Automated exposure control, adjustment of the mA and/or kV according to patient size, and/or use of iterative reconstruction technique. FINDINGS: HEMORRHAGE: No acute parenchymal, subarachnoid nor extra-axial hemorrhage. BRAIN: Suspect minimal chronic periventricular white matter ischemic changes. No obvious parenchymal nor extra-axial mass or collection is identified on this noncontrast study. Mild generalized volume loss. VENTRICLES: No evidence of obstructive hydrocephalus. CALVARIUM: Unremarkable. PARANASAL SINUSES: Minor mucosal thickening seen within at least 1 right parasagittal anterior superior ethmoid air cell the MASTOID AIR CELLS: Unremarkable as visualized. No inflammatory changes. OTHER FINDINGS: None. IMPRESSION: No acute intracranial hemorrhage. Suspect minimal chronic periventricular white matter ischemic changes. Disposition - Disposition Disposition: HOSPITALIZED Disposition Time: 14:40 Condition: FAIR Forms: [facility] (Russian) - Clinical Impression Clinical Impression: Depressive disorder - Scribe Statement The provider has reviewed the documentation as recorded by the Ebonie Steve All medical record entries made by the Tyshawnibotoniel were at my direction and personally dictated by me. I have reviewed the chart and agree that the record accurately reflects my personal performance of the history, physical exam, medical decision making, and the department course for this patient. I have also personally directed, reviewed, and agree with the discharge instructions and disposition.
[2017-01-18 13:02] LABS: BASO # 0.1 K/uL (0.0-0.2); BASO % 1.1 % (0.0-2.0); EOS # 0.2 K/uL (0.0-0.7); EOS % 3.3 % (0.0-4.0); LYMPH # 1.8 K/uL (1.0-4.3); LYMPH % 37.2 % (20.0-40.0); MEAN CELL VOLUME 98.3 fL (80.0-94.0); MEAN CORPUSCULAR HEMOGLOBIN 33.2 pg (27.0-31.0); MEAN CORPUSCULAR HGB CONC 33.8 g/dL (33.0-37.0); MEAN PLATELET VOLUME 11.3 fL (7.2-11.7); MONO # 0.5 K/uL (0.0-0.8); MONO % 9.8 % (0.0-10.0); NRBC % 0.2 % (0.0-2.0); RED CELL DISTRIBUTION WIDTH 14.7 % (11.5-14.5); WHITE BLOOD COUNT 4.9 K/uL (4.8-10.8)
[2017-01-18 13:13] LABS: CHLORIDE 100 mmol/L (98-107); SODIUM 136 mmol/L (132-148)
[2017-01-18 13:14] LABS: POTASSIUM 4.3 mmol/L (3.6-5.2)
[2017-01-18 13:16] LABS: ALB/GLOB RATIO 0.8 (1.0-2.1); ALKALINE PHOSPHATASE 148 U/L (38-126); ALT/SGPT 145 U/L (21-72); AST/SGOT 203 U/L (17-59); BILIRUBIN,TOTAL 1.3 mg/dL (0.2-1.3); BLOOD UREA NITROGEN 16 mg/dL (9-20); CALCIUM 9.2 mg/dl (8.6-10.4); CARBON DIOXIDE 28 mmol/L (22-30); GFR AFRICAN-AMERICAN > 60; GLUCOSE,RANDOM 75 mg/dL (75-110); TOTAL PROTEIN 7.8 g/dL (6.3-8.3)
[2017-01-18 13:17] LABS: ALCOHOL SERUM < 10 mg/dl (0-10)
--- NOTE | 2017-01-18 13:19 | CT ---
PROCEDURE: CT HEAD WITHOUT CONTRAST. HISTORY: imbalance COMPARISON: None available. The the TECHNIQUE: Axial computed tomography images were obtained through the head/brain without intravenous contrast. Radiation dose: Total exam DLP = 880.33 mGy-cm. This CT exam was performed using one or more of the following dose reduction techniques: Automated exposure control, adjustment of the mA and/or kV according to patient size, and/or use of iterative reconstruction technique. FINDINGS: HEMORRHAGE: No acute parenchymal, subarachnoid nor extra-axial hemorrhage. BRAIN: Suspect minimal chronic periventricular white matter ischemic changes. No obvious parenchymal nor extra-axial mass or collection is identified on this noncontrast study. Mild generalized volume loss. VENTRICLES: No evidence of obstructive hydrocephalus. CALVARIUM: Unremarkable. PARANASAL SINUSES: Minor mucosal thickening seen within at least 1 right parasagittal anterior superior ethmoid air cell the MASTOID AIR CELLS: Unremarkable as visualized. No inflammatory changes. OTHER FINDINGS: None. IMPRESSION: No acute intracranial hemorrhage. Suspect minimal chronic periventricular white matter ischemic changes.
[2017-01-18 13:22] LABS: URINE BILIRUBIN NEGATIVE (NEGATIVE); URINE COLOR Straw (YELLOW); URINE GLUCOSE (UA) NORMAL (Normal); URINE KETONE NEGATIVE (NEGATIVE); URINE LEUKOCYTE ESTERASE NEG Leu/uL (Negative); URINE PROTEIN NEGATIVE (NEGATIVE); URINE UROBILINOGEN NORMAL mg/dL (0.2-1.0)
[2017-01-18 13:25] LABS: URINE BLOOD TRACE (NEGATIVE)
--- NOTE | 2017-01-18 15:57 | PCM.BM ---
<Lupe Bustamante - Last Filed: 01/18/17 15:56> Treatment assets and liabiliti Patient Assests: adapts well, cooperative, ADL independent, negotiates basic needs, cognitively intact Patient Liabilities: medical problems (Gastritis, Dizziness, Hep C) - Milieu Protocol Maintain good personal hygiene: daily Encourage regular showers, daily Remind patient to perform daily oral care, other Assist patient to perform ADL's (Self) Conduct patient checks and document Observation sheet: Q15 minutes (Safety) Maintain personal safety: every shift Educate patient to report safety concerns to staff, every shift Monitor environment for contraband/sharps Medication safety: Monitor for expected outcome, potential side effects: every shift, Assess barriers to learning: every shift, Assess readiness for medication education: every shift <Celestine Lemus - Last Filed: 01/19/17 12:36> - Diagnosis (1) Major depressive disorder, single episode Status: Acute Interventions: Assess/adjust medications daily and/or as needed SEE patient on him individual basis 7x/week to assess status of hallucinations. Discuss risks, benefits, side effects and alternatives of medications. 01/19/17 12:36 <Bhavani Prescott - Last Filed: 01/24/17 10:40> Family Contact Family involvement: Family/SO is involved Family contact: Patient declines to allow family contact at present - Goals for Treatment Patient goals for treatment: "I want to go to an outpatient program." Discharge/Continuing Care - Education Needs Education Needs: Patient Medication, Patient Coping Skills - Discharge Discharge Criteria: Tolerates medication w/o severe side effects, Reduction of target symptoms Discharge to:: Home, With Family - Treatment Team Participation Discussed with Family/SO: No Was Patient/Family/SO present at Treatment Team Meeting: Yes
[2017-01-18] MEDS: Propranolol 5 mg Tab PO SCH (21:09)
[2017-01-19] MEDS: Propranolol 5 mg Tab PO SCH ×2 (11:08→21:23)
--- NOTE | 2017-01-19 12:41 | PCM.PSYCH ---
Initial Psychiatric Evaluation - Initial Psychiatric Evaluation Type of Admission: Voluntary Legal Status: Capacity Chief Complaint (in patient's own words): I was feeling depressed History of Present Illness and Precipitating Events: Patient is a 61 years old, , employed, male who initially came to ER for the treatment of vertigo. Later patient reported feeling depressed and was admitted to psych for treatment of depression. Patient reported no treatment for the depression in the past. Decreased sleep at times feeling tired. No change in appetite or weight loss. Denied any current or past suicidal ideations or suicidal attempts. Denied any homicidal ideations. Patient denied any psychotic anxiety or manic symptoms. Patient has history of drinking alcohol 35 years ago. Denied any alcohol use for last 35 years. Denied any other drug use including cocaine, cannabis and heroin. Denied smoking cigarettes. Patient was born in [place], has ninth grade of education from [place]. Migrated to [facility] in 1974. 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 He is and has 2 grown up children. Patient lives with his and 1 son. His height is 5 feet 6 inches and weight is 160 pounds. Current Medications: Active Medications Generic Name Dose Route Start Last Admin Trade Name Freq PRN Reason Stop Dose Admin Escitalopram Oxalate 5 mg 01/19/17 10:00 01/19/17 10:39 Lexapro PO 5 mg DAILY ERNESTO Administration Hydroxyzine HCl 25 mg 01/18/17 16:27 01/18/17 21:09 Atarax PO 25 mg Q4H PRN Administration Anxiety Ibuprofen 400 mg 01/18/17 16:27 Motrin Tab PO Q6H PRN Pain, moderate (4-7) Meclizine HCl 25 mg 01/18/17 22:00 01/19/17 11:08 Antivert PO 25 mg Q12H ERNESTO Administration Pneumococcal Polyvalent Vaccine 0.5 ml 01/21/17 10:00 Pneumovax 23 Vaccine IM 01/21/17 10:01 .ONCE ONE Propranolol HCl 5 mg 01/18/17 22:00 01/19/17 11:08 Inderal PO 5 mg Q12H ERNESTO Administration Trazodone HCl 50 mg 01/18/17 16:27 01/18/17 21:09 Desyrel PO 50 mg HS PRN Administration Insomnia Past Psychiatric History - Past Psychiatric History Previous Treatment History: None History of Abuse: None reported History of ETOH/Drug Use: See HPI History of Family Illness: None reported Pertinent Medical Hx (Current Medical&Sleep Prob, Allergies): Allergies Allergy/AdvReac Type Severity Reaction Status Date / Time FISH Allergy SWELLING Verified 01/18/17 11:50 Penicillins Allergy RASH Verified 01/18/17 11:50 Meclizine [Meclizine*] 1 tab PO BID PRN #60 tab 12/22/16 Propranolol [Inderal] 10 mg PO DAILY 01/18/17 Hepatitis C Veryigo Review of Systems - Psychiatric Psychiatric: Depression Mental Status Examination - Personal Presentation Personal Presentation: Looks stated age - Affect Affect: Depressed - Motor Activity Motor Activity: Calm - Reliability in Providing Information Reliability in Providing Information: Good - Speech Speech: Organized - Mood Mood: Depressed - Formal Thought Process Formal Thought Process: No Impairment - Hallucinations/Delusions Hallucinations: Other (None reported) Delusions: Other - Obsessions/Compulsions Obsessions: None Compulsions: None - Cognitive Functions Orientation: Person, Place, Situation, Time Sensorium: Alert Attention/Concentration: Attentive Abstract Thinking: [place] Estimate of Intelligence: Average Judgement: Intact, as evidence by: Insight regarding need for hospitalization Memory: Recent intact, as evidence by: 3/3 object recall, Remote intact, as evidenced by: Ability to recall historical events - Risk Risk: Diminished functioning - Strength & Assets Inventory Strength & Assets Inventory: Family support, Employment history, Cooperative - Limitations Limitations: Other DSM 5 DX - DSM 5 DSM 5 Diagnosis: Major depressive single episode severe without psychotic features - Recommended/Plan of Treatment Treatment Recommendations and Plan of Treatment: Patient education Supportive therapy We'll start treatment with Lexapro Other when necessary medications Projected ELOS: 5-6 days - Smoking Cessation Smoking Cessation Initiated: No Reason for not providing: Patient doesn't smoke cigarettes
[2017-01-20] MEDS: Propranolol 5 mg Tab PO SCH ×2 (09:36→21:23)
--- NOTE | 2017-01-20 19:56 | PCM.PYCHPN ---
Psychiatric Progress Note - Psychiatric Progress Note Patient seen today, length of contact: 16 minutes Patient Chief Complaint: My depression is getting better Problems Identified/Issues Discussed: Patient was seen. Chart was reviewed important content noted. Nurse input received. No events overnight. Patient slept well. Patient reported that he still feeling depressed and has difficulty in focusing, anhedonia, decrease in appetite, and low selfesteem. Denies suicidal or homicidal ideation. Patient does not report hallucinations. No delusions elicited. No paranoia elicited. Patient has remained in good clinical and behavioral control. Patient is finding medications beneficial and would like to continue with treatment plan. Patient appreciated that treatment team is trying to help. DSM 5 Symptoms Update: MDD Medication Change: Yes (increased Lexapro to 10 mg po daily) Medical Record Reviewed: Yes Mental Status Examination - Cognitive Function Orientation: Person, Place, Situation, Time Memory: Intact Attention: WNL Concentration: WNL Association: Loose Fund of Knowledge: WNL Decription of patient's judgement and insights: limited/limited - Mood Mood: Depressed - Affect Affect: Depressed - Speech Speech: Appropriate - Formal Thought Process Formal Thought Process: No Impairment Psychotic Thoughts and Behaviors: denied - Suicidal Ideation Suicidal Ideation: No - Homicidal Ideation Homicidal Ideation: No Goal/Treatment Plan - Goal/Treatment Plan Need for Continued Stay: Remain at risks for inpatient hospitalization, Severe depression anxiety, Discharge may exacerbated symptoms Progress Toward Problem(s) and Goals/Treatment Plan: Increase Lexapro to 10 mg po daily Continue other current management. Attend groups and activities Individual therapy Patient educated about risks, benefits, side effects & alternatives of meds. Pt verbalized understanding & agreed with the above. Therapy in milieu. Estimated Date of D/C: 01/25/17 - Smoking Cessation Smoking Cessation Initiated: Yes
[2017-01-21] MEDS: Propranolol 5 mg Tab PO SCH ×2 (09:35→21:32)
[2017-01-21] MEDS ORDERED: Influenza Vaccine 60 mcg/0.5 mL SYR (4YR UP) IM ONE (10:00)
[2017-01-21] MEDS ORDERED: Pneumococcal 23-Valent Vaccine IM ONE (10:00)
--- NOTE | 2017-01-21 18:35 | PCM.PYCHPN ---
Psychiatric Progress Note - Psychiatric Progress Note Patient seen today, length of contact: 16 minutes Patient Chief Complaint: "I'm getting better" Problems Identified/Issues Discussed: Patient was seen. Chart was reviewed important content noted. Nurse input received. No events overnight. Patient slept well. Patient reported that his mood is getting better". He reported improvement in focusing, anhedonia, decrease in appetite, and low selfesteem. He reported improvement in dizziness. Denies suicidal or homicidal ideation. Patient does not report hallucinations. No delusions elicited. No paranoia elicited. Patient has remained in good clinical and behavioral control. Patient is finding medications beneficial and would like to continue with treatment plan. Patient appreciated that treatment team is trying to help. DSM 5 Symptoms Update: MDD Medication Change: Yes (increased Lexapro to 10 mg po daily) Medical Record Reviewed: Yes Mental Status Examination - Cognitive Function Orientation: Person, Place, Situation, Time Memory: Intact Attention: WNL Concentration: WNL Association: Loose Fund of Knowledge: WNL Decription of patient's judgement and insights: limited/fair - Mood Mood: Depressed - Affect Affect: Constricted, Depressed - Speech Speech: Appropriate - Formal Thought Process Formal Thought Process: No Impairment Psychotic Thoughts and Behaviors: denied - Suicidal Ideation Suicidal Ideation: No - Homicidal Ideation Homicidal Ideation: No Goal/Treatment Plan - Goal/Treatment Plan Need for Continued Stay: Remain at risks for inpatient hospitalization, Severe depression anxiety, Discharge may exacerbated symptoms Progress Toward Problem(s) and Goals/Treatment Plan: Continue Lexapro to 10 mg po daily Continue other current management. Attend groups and activities Individual therapy Patient educated about risks, benefits, side effects & alternatives of meds. Pt verbalized understanding & agreed with the above. Therapy in milieu. Estimated Date of D/C: 01/25/17
[2017-01-22] MEDS: Propranolol 5 mg Tab PO SCH ×2 (10:10→21:32)
--- NOTE | 2017-01-22 16:45 | PCM.PYCHPN ---
Psychiatric Progress Note - Psychiatric Progress Note Patient seen today, length of contact: 15 minutes Patient Chief Complaint: I'm feeling little better. Can you ordered no salt diet for me. Problems Identified/Issues Discussed: Patient seen. Chart reviewed. Case discussed with staff. Issues related to illness and treatment were discussed with the patient. Reported compliant with treatment with no adverse affects. Tolerating treatment very well. Patient reported feeling much better. Mood, sleep and appetite is also much better. Patient was requesting for no salt diet. At the time of evaluation, patient was awake alert oriented 3, had no delusions , no auditory or visual hallucinations, no suicidal ideations or homicidal ideations. Medical Problems: Vertigo Diagnostic Results: Reviewed DSM 5 Symptoms Update: Improving with treatment Medication Change: No Medical Record Reviewed: Yes Mental Status Examination - Cognitive Function Orientation: Person, Place, Situation, Time Memory: Intact Attention: WNL Concentration: WNL Association: WN Fund of Knowledge: [facility] Decription of patient's judgement and insights: Fair - Mood Mood: Depressed (Much less than before) - Affect Affect: Depressed - Speech Speech: Appropriate - Formal Thought Process Formal Thought Process: No Impairment Psychotic Thoughts and Behaviors: None - Suicidal Ideation Suicidal Ideation: No - Homicidal Ideation Homicidal Ideation: No Goal/Treatment Plan - Goal/Treatment Plan Need for Continued Stay: Remain at risks for inpatient hospitalization, Discharge may exacerbated symptoms, Severe functional impairment Progress Toward Problem(s) and Goals/Treatment Plan: Patient education Supportive therapy Continue treatment as before Estimated Date of D/C: 01/25/17 - Smoking Cessation Smoking Cessation Initiated: No Reason for not providing: Patient doesn't smoke cigarettes
[2017-01-23] MEDS: Propranolol 5 mg Tab PO SCH ×2 (09:39→21:43)
--- NOTE | 2017-01-23 14:09 | PCM.PYCHPN ---
Psychiatric Progress Note - Psychiatric Progress Note Patient seen today, length of contact: 15 minutes Patient Chief Complaint: I'm feeling much better but still feel dizziness at times. Problems Identified/Issues Discussed: Patient seen. Chart reviewed. Case discussed with staff. Issues related to illness and treatment were discussed with the patient. Reported compliant with treatment with no adverse affects. Tolerating treatment very well. Patient reported feeling much better. Mood, sleep and appetite is also much better. Patient was requesting for no salt diet. At the time of evaluation, patient was awake alert oriented 3, had no delusions , no auditory or visual hallucinations, no suicidal ideations or homicidal ideations. Medical Problems: Vertigo Diagnostic Results: Reviewed DSM 5 Symptoms Update: improving with treatment Medication Change: No Medical Record Reviewed: Yes Mental Status Examination - Cognitive Function Orientation: Person, Place, Situation, Time Memory: Intact Attention: WNL Concentration: WNL Association: WNL Fund of Knowledge: [facility] Decription of patient's judgement and insights: Fair - Mood Mood: Depressed (Much less than before) - Affect Affect: Depressed - Speech Speech: Appropriate - Formal Thought Process Formal Thought Process: No Impairment Psychotic Thoughts and Behaviors: None - Suicidal Ideation Suicidal Ideation: No - Homicidal Ideation Homicidal Ideation: No Goal/Treatment Plan - Goal/Treatment Plan Need for Continued Stay: Remain at risks for inpatient hospitalization, Discharge may exacerbated symptoms, Severe functional impairment Progress Toward Problem(s) and Goals/Treatment Plan: Patient education Supportive therapy Continue treatment as before Estimated Date of D/C: 01/25/17 - Smoking Cessation Smoking Cessation Initiated: No
[2017-01-24] MEDS: Propranolol 5 mg Tab PO SCH ×2 (10:28→21:16)
--- NOTE | 2017-01-24 12:41 | PCM.PYCHPN ---
Psychiatric Progress Note - Psychiatric Progress Note Patient seen today, length of contact: 15 minutes Patient Chief Complaint: I'm feeling much better but still feel dizziness at times. Problems Identified/Issues Discussed: Patient seen. Chart reviewed. Case discussed with staff. Issues related to illness and treatment were discussed with the patient. Reported compliant with treatment with no adverse affects. Tolerating treatment very well. Patient reported feeling much better. Mood, sleep and appetite is also much better. At the time of evaluation, patient was awake alert oriented 3, had no delusions , no auditory or visual hallucinations, no suicidal ideations or homicidal ideations. Medical Problems: Vertigo Diagnostic Results: Reviewed DSM 5 Symptoms Update: Improving with treatment Medication Change: No Medical Record Reviewed: Yes Mental Status Examination - Cognitive Function Orientation: Person, Place, Situation, Time Memory: Intact Attention: WNL Concentration: WNL Association: WNL Fund of Knowledge: [facility] Decription of patient's judgement and insights: Fair - Mood Mood: Depressed (Much less than before) - Affect Affect: Other (Appropriate) - Speech Speech: Appropriate - Formal Thought Process Formal Thought Process: No Impairment Psychotic Thoughts and Behaviors: None - Suicidal Ideation Suicidal Ideation: No - Homicidal Ideation Homicidal Ideation: No Goal/Treatment Plan - Goal/Treatment Plan Need for Continued Stay: Remain at risks for inpatient hospitalization, Discharge may exacerbated symptoms, Severe functional impairment Progress Toward Problem(s) and Goals/Treatment Plan: Patient education Supportive therapy Continue treatment as before Estimated Date of D/C: 01/25/17 - Smoking Cessation Smoking Cessation Initiated: No
[2017-01-25 07:14] VITALS: TEMP 98.1
[2017-01-25] MEDS: Propranolol 5 mg Tab PO SCH ×2 (09:54→21:29)
--- NOTE | 2017-01-25 12:15 | PCM.PYCHPN ---
Psychiatric Progress Note - Psychiatric Progress Note Patient seen today, length of contact: 15 minutes Patient Chief Complaint: I'm feeling much better but still feel dizziness at times. I'm worried about driving. Problems Identified/Issues Discussed: Patient seen. Chart reviewed. Case discussed with staff. Issues related to illness and treatment were discussed with the patient. Reported compliant with treatment with no adverse affects. Tolerating treatment very well. Patient reported feeling much better. Mood, sleep and appetite is also much better. 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 We will refer the patient to neurologist after discharge for further evaluation and treatment of his vertigo. At the time of evaluation, patient was awake alert oriented 3, had no delusions , no auditory or visual hallucinations, no suicidal ideations or homicidal ideations. Medical Problems: Vertigo Diagnostic Results: Reviewed DSM 5 Symptoms Update: Improving with treatment Medication Change: No Medical Record Reviewed: Yes Mental Status Examination - Cognitive Function Orientation: Person, Place, Situation, Time Memory: Intact Attention: WNL Concentration: WNL Association: WNL Fund of Knowledge: [facility] Decription of patient's judgement and insights: Fair - Mood Mood: Depressed (Much less than before) - Affect Affect: Other (Appropriate) - Speech Speech: Appropriate - Formal Thought Process Formal Thought Process: No Impairment Psychotic Thoughts and Behaviors: None - Suicidal Ideation Suicidal Ideation: No - Homicidal Ideation Homicidal Ideation: No Goal/Treatment Plan - Goal/Treatment Plan Need for Continued Stay: Remain at risks for inpatient hospitalization, Discharge may exacerbated symptoms, Severe functional impairment Progress Toward Problem(s) and Goals/Treatment Plan: Patient education Supportive therapy Continue treatment as before Patient will go to [facility] for follow-up care after discharge from the hospital Estimated Date of D/C: 01/26/17 - Smoking Cessation Smoking Cessation Initiated: No
[2017-01-26 07:37] VITALS: BP 103/55; PULSE 63; RESP 20; O2SAT 96
[2017-01-26] MEDS: Propranolol 5 mg Tab PO SCH (09:53)
--- NOTE | 2017-01-26 23:54 | PCM.PYCHDC ---
Mental Status Examination - Mental Status Examination Orientation: Person, Place, Situation, Time Memory: Intact Mood: Neutral Affect: Other (appropriate) Speech: Appropriate Attention: WNL Concentration: WNL Association: WNL Fund of Knowledge: WNL Formal Thought Process: No Impairment Description of patient's judgement and insight: Fair Psychotic Thoughts and Behaviors: None Suicidal Ideation: No Current Homicidal Ideation?: No Discharge Summary - Discharge Note Reason for Hospitalization: depression Laboratory Data: reviewed Consultations:: List each consultation separately and include: 1. Reason for request. 2. Findings. 3. Follow-up Summary of Hospital Course include:: 1. Description of specific treatment plan utilized for patients during their course of treatmen. 2. Summarize the time- course for resolution of acute symptoms and/or regressed behaviors. 3. Describe issues identified and worked on during hospitalization. 4. Describe medication utilized. 5. Describe medical problems identified and treated. 6. Reassessment of suicide risk Summary of Hospital Course: Patient is a 61 years old, , employed, male who initially came to ER for the treatment of vertigo. Later patient reported feeling depressed and was admitted to psych for treatment of depression. Patient reported no treatment for the depression in the past. Decreased sleep at times feeling tired. No change in appetite or weight loss. Denied any current or past suicidal ideations or suicidal attempts. Denied any homicidal ideations. Patient denied any psychotic anxiety or manic symptoms. Patient has history of drinking alcohol 35 years ago. Denied any alcohol use for last 35 years. Denied any other drug use including cocaine, cannabis and heroin. Denied smoking cigarettes. Patient was born in [place], has ninth grade of education from [place]. Migrated to [facility] in [facility]. 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 He is and has 2 grown up children. Patient lives with his and 1 son. His height is 5 feet 6 inches and weight is 160 pounds. During his stay in the hospital patient was treated with Zoloft, and other PRN medications. Patient was attending groups and other actovities on the unit. With above treatment, patient started feeling better. Today patient was stable and ready for discharge. At the time of ealuation and discharge, patient was AAOx3, has no delusions, no SI/HI and no A/V hallucinations. patient was discharged in a stable condition. - Diagnosis (1) Major depressive disorder, single episode Status: Acute - Final Diagnosis (DSM 5) Condition upon Discharge: FAIR Disposition: HOME/ ROUTINE Follow-up Treatment Plan: Patient will go to [facility] for follow-up care after discharge from the hospital Prescriptions/Medication Reconciliation: Escitalopram [Lexapro] 10 mg PO DAILY #30 tab traZODone [Desyrel] 50 mg PO HS PRN #30 tab PRN Reason: Insomnia - Smoking Cessation Smoking Cessation Medication prescribed: No - Antipsychotic Medications Pt discharged on 2 or more routine antipsychotic medications: No
== END 2017-01-26 12:30 | disposition home or self-care (01) | DRG 885 ==
LOC: C.ER 11:44 → C.5E 14:46
PROVIDERS: ADMIT Psychiatry & Neurology Psychiatry; ATTEND Psychiatry & Neurology Psychiatry
PROC: GZ56ZZZ Individual Psychotherapy, Supportive (ICD-10-PCS; principal; 2017-01-18)
DX: F32.2 Major depressive disorder, single episode, severe without psychotic features (principal); R42 Dizziness and giddiness

== ENCOUNTER 2017-01-31 08:02 | Day surgery (SDC) | payer OTHER ==
[2017-01-31 08:25] VITALS: BMI 25.9
[2017-01-31] MEDS ORDERED: Propofol 10 mg/ml Inj (20 ML) ONE (10:40)
[2017-01-31] MEDS ORDERED: Midazolam 2 MG/2 ML VIAL ONE (10:40)
[2017-01-31] MEDS ORDERED: Lactated Ringer's 1,000 ML IV ONE (10:45)
[2017-01-31] MEDS ORDERED: Lactated Ringer's 500 ML IV SCH (11:00)
[2017-01-31 11:26] VITALS: TEMP 97.7
[2017-01-31 11:47] VITALS: PULSE 68; RESP 18; O2SAT 99
[2017-01-31 12:11] VITALS: BP 124/68
== END 2017-01-31 12:10 | disposition home or self-care (01) ==
LOC: C.ENDO 08:02
PROVIDERS: ATTEND Internal Medicine Gastroenterology
DX: K76.6 Portal hypertension (principal); I85.10 Secondary esophageal varices without bleeding; K25.9 Gastric ulcer, unspecified as acute or chronic, without hemorrhage or perforation; K74.60 Unspecified cirrhosis of liver; K31.89 Other diseases of stomach and duodenum
CPT/HCPCS: 43239; 88305; J2250; J2704; J7120